=== PATIENT | female | born 1960 | race Caucasian/White ===

== ENCOUNTER 2020-09-05 19:24 | Emergency (ER) | payer OTHER, SELFPAY ==
[2020-09-05 20:19] VITALS: BP 138/95; PULSE 84; RESP 20; TEMP 36.9; O2SAT 95; BMI 41.1
[2020-09-06 00:36] LABS: Basophils Percent Auto 0.3 % (0-2); Eosinophils Absolute Auto 0.2 X10*3/uL (0.0-0.4); Eosinophils Percent Auto 1.2 % (0-4); Hematocrit 38.7 % (37-47); Hemoglobin 12.7 g/dl (12.0-16.0); Imm Gran Abs Auto 0.05 X10*3/uL (0.00-0.03); Imm Gran Pct Auto 0.4 % (0.0-0.4); Lymphocytes Absolute Auto 2.8 X10*3/uL (1.2-4.9); Lymphocytes Percent Auto 20.4 % (20-40); MANUAL DIFF FLAG NO; Mean Corpuscular HGB Conc 32.8 g/dl (31.0-35.0); Mean Corpuscular Hemoglobin 28.5 pg (27.0-33.0); Mean Corpuscular Volume 86.8 fL (80-98); Mean Platelet Volume 10.1 fL (9.4-12.3); Monocytes Percent Auto 7.2 % (2-11); Neutrophils Absolute Auto 9.6 X10*3/uL (2.0-8.3); Neutrophils Percent Auto 70.5 % (45-73); Red Blood Count 4.46 X10*6/uL (4.20-5.50); Red Cell Distribution Width 13.9 % (11.0-16.0); White Blood Count 13.7 X10*3/uL (4.8-10.8)
[2020-09-06 00:39] LABS: Platelet Count 94 X10*3/uL (160-400)
[2020-09-06 01:02] LABS: Alanine Aminotransferase 30 U/L (0-31); Albumin Level 3.7 g/dL (3.5-5.0); Alkaline Phosphatase 115 U/L (39-117); Anion Gap 15 (12-20); Aspartate Amino Transferase 20 U/L (5-31); Bilirubin Total 0.5 mg/dL (0.0-1.0); Blood Urea Nitrogen 33 mg/dL (9-16); Calcium 8.9 mg/dL (8.4-10.2); Carbon Dioxide 22 mmol/L (22-29); Chloride 104 mmol/L (96-108); Creatinine Clr Calc Pharmacy 38.7; Estimated Glomerular Filt Rate 30; Glucose Random 106 mg/dL (60-115); Lipase 10 U/L (8-78); Potassium 4.6 mmol/l (3.3-5.1); Sodium 136 mmol/L (135-145); Total Protein 7.3 g/dL (6.5-8.0)
--- NOTE | 2020-09-06 04:05 | PC.NURSE ---
pt tried to provide a urine sample, unable.
[2020-09-06 04:10] VITALS: BP 102/46; PULSE 73; RESP 16; TEMP 36.2; O2SAT 97
--- NOTE | 2020-09-06 05:15 | ED_ITS ---
HPI - General Adult General Chief complaint: General Medical Stated complaint: ABD PAIN Time Seen by Provider: 09/06/20 04:21 Source: patient Mode of arrival: ambulatory Limitations: no limitations History of Present Illness HPI narrative: this is a 60-year-old female with multiple comorbidities who presents with onset of abdominal discomfort after eating on Saturday evening. She states she has only been able to eat a little bit and has primarily been nauseous but denies any vomiting, fevers but has had chills. She denies any significant surgical history other than cholecystectomy and denies any urinary pain /burning / frequency. She states that overall she has just felt worse since the onset Saturday evening. Related Data Previous Rx's Medication Instructions Recorded ciprofloxacin HCl 500 mg PO Q12H 10 Days #20 tab 09/06/20 metronidazole [Flagyl] 500 mg PO Q8H 10 Days #30 tab 09/06/20 ondansetron HCl [Zofran] 4 mg PO Q6H PRN #7 tab 09/06/20 Allergies Allergy/AdvReac Type Severity Reaction Status Date / Time bacitracin Allergy Unknown Unknown Verified 09/06/20 04:17 esomeprazole [From NEXIUM] Allergy Unknown UNKNOWN Verified 09/06/20 04:17 NSAIDS (Non-Steroidal Allergy Unknown UNKNOWN Verified 09/06/20 04:17 Anti-Inflamma [NSAIDS (NON-STEROIDAL ANTI-INFLAMMA] omeprazole [From PRILOSEC] Allergy Unknown STOMACH Verified 09/06/20 04:17 UPSET ANY ANTI-INFLAMMATORY MEDS Allergy Unknown UNKNOWN Uncoded 08/18/20 18:58 antacids Allergy Unknown Unknown Uncoded 09/06/20 04:17 antiinflammatories Allergy Unknown Unknown Uncoded 09/06/20 04:17 Bacitracin Allergy Unknown Unknown Uncoded 09/06/20 04:17 Review of Systems Review of Systems: Pertinent positives and negatives as stated in HPI 10 point review systems is otherwise negative. [facility] Past Medical History Source: nursing notes reviewed Medical History Asthma Diabetes mellitus, type 2 Hypertension Renal insufficiency Social History Social History Alcohol intake: never Smoking Status: Never smoker Use of substances other than those prescribed or required for medical reasons: No Advance Directives: No Advance Directives Information Provided: No Physical Exam Vital Signs and I&O and Narrative: Vital Signs and I&O: Vital Signs Temp 97.2 F 09/06/20 04:10 Pulse 76 09/06/20 06:48 Resp 18 09/06/20 05:27 BP 103/51 L 09/06/20 06:48 Pulse Ox 98 09/06/20 05:27 Intake & Output 09/05/20 09/06/20 09/06/20 18:59 06:59 18:59 Intake Total 50 / 50 Balance 50 / 50 Weight 102.058 kg Intake: Intake, IV Amoun t 50 / 50 cefTRIAXone so dium 1 gm In 0.9 50 / 50 % Sodium Chlor reyes 50 ml @ 100 mls/hr IV ONCE ONE Rx#: [id number] Body Mass Index 41.1 VITAL SIGNS: Reviewed. GENERAL: Well developed, well nourished, in no acute distress. HEAD: Normocephalic/atraumatic, Posterior oropharynx was without edema, erythema or exudate. EYES: PERRLA, EOMI intact without pain, no nystagmus/pallor/icterus noted EARS: Ext canals without abnormality, TMs non-bulging and non-erythematous NOSE: Nares patent bilateral OROPHARYNX: no oral lesions noted, posterior pharynx clear and non-erythematous without noted tonsillar enlargement/erythema/exudates NECK: Supple, no adenopathy LUNGS: Normal breath sounds. No adventitious sounds or accessory muscle use. SpO2<97> CARDIOVASCULAR: Regular rate and rhythm without noted murmurs, no JVD or lower extremity edema. ABDOMEN: obese,Soft, diffuse tenderness primarily in the lower abdomen, non- distended with bowel sounds. No rigidity. No guarding. No palpable masses or hernias noted MUSCULOSKELETAL: No tenderness, deformities, or effusions noted on gross insp ection. EXTREMITIES: No cyanosis, clubbing or edema. SKIN: Inspection of the skin reveals no rashes, ulcerations, jaundice, pallor, or petechiae. NEUROLOGIC: Alert and oriented x 4. Strength and sensation to light touch were grossly intact x 4. Course Course Course Narrative: This is a 60-year-old female with history and clinical presentation most suggestive of possible diverticulitis, renal colic, UTI. Patient does not currently meet any SIRS criteria. on review of all lab work and imaging patient has a noted leukocytosis with evidence on CT scan of mild colitis and urinalysis is positive for UTI. Patient will be treated with initial IV antibiotics and then discharged with a home prescription. Medical Decision Making Lab Data Result diagrams: 09/06/20 00:30 09/06/20 00:30 Labs: Lab Results 09/06/20 09/06/20 09/06/20 Range/Units 00:30 00:30 03:59 WBC 13.7 H (4.8-10.8) X10*3/uL RBC 4.46 (4.20-5.50) X10*6/uL Hgb 12.7 (12.0-16.0) g/dl Hct 38.7 (37-47) % MCV 86.8 (80-98) fL MCH 28.5 (27.0-33.0) pg MCHC 32.8 (31.0-35.0) g/dl RDW 13.9 (11.0-16.0) % Plt Count 94 L (160-400) X10*3/uL MPV 10.1 (9.4-12.3) fL Immature Gran % (Auto) 0.4 (0.0-0.4) % Neut % (Auto) 70.5 (45-73) % Lymph % (Auto) 20.4 (20-40) % [place] % (Auto) 7.2 (2-11) % Eos % (Auto) 1.2 (0-4) % Baso % (Auto) 0.3 (0-2) % Neut # (Auto) 9.6 H (2.0-8.3) X10*3/uL Lymph # (Auto) 2.8 (1.2-4.9) X10*3/uL [place] # (Auto) 1.0 (0.1-1.2) X10*3/uL Eos # (Auto) 0.2 (0.0-0.4) X10*3/uL Baso # (Auto) 0.0 (0.0-0.2) X10*3/uL Abs Immat Gran (auto) 0.05 H (0.00-0.03) X10*3/uL Absolute Nucleated RBC 0.000 (0.0-0.012) X10*3/uL Nucleated RBC % (auto) 0.0 (0.0-0.2) /100WBC Hold Blue Top SEE NOTE Sodium 136 (135-145) mmol/L Potassium 4.6 (3.3-5.1) mmol/l Chloride 104 (96-108) mmol/L Carbon Dioxide 22 (22-29) mmol/L Anion Gap 15 (12-20) BUN 33 H (9-16) mg/dL Creatinine 1.73 H (0.5-1.4) mg/dL Estim Creat Clear Calc 38.7 Estimated GFR 30 Random Glucose 106 (60-115) mg/dL Calcium 8.9 (8.4-10.2) mg/dL Total Bilirubin 0.5 (0.0-1.0) mg/dL AST 20 (5-31) U/L ALT 30 (0-31) U/L Alkaline Phosphatase 115 (39-117) U/L Total Protein 7.3 (6.5-8.0) g/dL Albumin 3.7 (3.5-5.0) g/dL Lipase 10 (8-78) U/L Urine Color Urine Appearance Urine pH (5.0-8.0) Ur Specific [place] (1.005-1.025) Urine Protein (NEG-TRACE) MG/DL Urine Glucose (UA) (NEG) MG/DL Urine Ketones (NEG) MG/DL Urine Blood (NEG) Urine Nitrite (NEG) Ur Leukocyte Esterase (NEG) Urine RBC (0) /HPF Urine WBC (0-4) /HPF Ur Squamous Epith Cells /LPF Urine Bacteria /LPF Urine Test (NEGATIVE) 09/06/20 Range/Units 06:46 WBC (4.8-10.8) X10*3/uL RBC (4.20-5.50) X10*6/uL Hgb (12.0-16.0) g/dl Hct (37-47) % MCV (80-98) fL MCH (27.0-33.0) pg MCHC (31.0-35.0) g/dl RDW (11.0-16.0) % Plt Count (160-400) X10*3/uL MPV (9.4-12.3) fL Immature Gran % (Auto) (0.0-0.4) % Neut % (Auto) (45-73) % Lymph % (Auto) (20-40) % [place] % (Auto) (2-11) % Eos % (Auto) (0-4) % Baso % (Auto) (0-2) % Neut # (Auto) (2.0-8.3) X10*3/uL Lymph # (Auto) (1.2-4.9) X10*3/uL [place] # (Auto) (0.1-1.2) X10*3/uL Eos # (Auto) (0.0-0.4) X10*3/uL Baso # (Auto) (0.0-0.2) X10*3/uL Abs Immat Gran (auto) (0.00-0.03) X10*3/uL Absolute Nucleated RBC (0.0-0.012) X10*3/uL Nucleated RBC % (auto) (0.0-0.2) /100WBC Hold Blue Top Sodium (135-145) mmol/L Potassium (3.3-5.1) mmol/l Chloride (96-108) mmol/L Carbon Dioxide (22-29) mmol/L Anion Gap (12-20) BUN (9-16) mg/dL Creatinine (0.5-1.4) mg/dL Estim Creat Clear Calc Estimated GFR Random Glucose (60-115) mg/dL Calcium (8.4-10.2) mg/dL Total Bilirubin (0.0-1.0) mg/dL AST (5-31) U/L ALT (0-31) U/L Alkaline Phosphatase (39-117) U/L Total Protein (6.5-8.0) g/dL Albumin (3.5-5.0) g/dL Lipase (8-78) U/L Urine Color DARK YELLOW Urine Appearance HAZY Urine pH 6.0 (5.0-8.0) Ur Specific [place] 1.025 (1.005-1.025) Urine Protein TRACE (NEG-TRACE) MG/DL Urine Glucose (UA) NEG (NEG) MG/DL Urine Ketones NEG (NEG) MG/DL Urine Blood NEG (NEG) Urine Nitrite POS H (NEG) Ur Leukocyte Esterase 1+ H (NEG) Urine RBC 0 (0) /HPF Urine WBC 15-29 H (0-4) /HPF Ur Squamous Epith Cells TRACE /LPF Urine Bacteria 3+ /LPF Urine Test NEGATIVE (NEGATIVE) Discharge Plan Discharge Clinical Impression: Colitis UTI (urinary tract infection) Qualifiers: Urinary tract infection type: acute cystitis Hematuria presence: without hematuria Qualified Code(s): N30.00 - Acute cystitis without hematuria Patient Disposition: Home, Self-Care Instructions: Urinary Tract Infection in Women (ED), Colitis (ED) Additional Instructions: 1. Resume all home medications as prescribed. 2. avoid all spicy/ fatty /citrus foods, caffeinated / carbonated beverages 3. increase fluid intake, especially water The patient and/or family acknowledge understanding of results (as applicable), diagnosis, treatment plan, need for follow up, and symptoms that should prompt a return to the emergency room. Prescriptions: New ciprofloxacin HCl 500 mg tablet 500 mg PO Q12H 10 Days Qty: 20 RF: 0 metronidazole [Flagyl] 500 mg tablet 500 mg PO Q8H 10 Days Qty: 30 RF: 0 ondansetron HCl [Zofran] 4 mg tablet 4 mg PO Q6H PRN (Reason: nausea and vomiting) Qty: 7 RF: 0 Referrals: Po,Fabienne Alvarez MD [Primary Care Provider] -
[2020-09-06 05:27] VITALS: BP 99/57; PULSE 72; RESP 18; O2SAT 98
--- NOTE | 2020-09-06 05:36 | CT_ITS ---
EXAMINATION: CT ABDOMEN AND PELVIS WITHOUT CONTRAST CLINICAL INFORMATION: Abdominal pain COMPARISON: Report from 05/28/2020. Images not available. TECHNIQUE: Multidetector volumetric imaging was performed from the superior aspect of the liver through the pubic symphysis. Sagittal and coronal reformatted images were obtained on the technologist's workstation. This CT examination was performed using dose optimization techniques as appropriate, variously including the following: *Automated exposure control *Adjustment of mA and/or kV according to patient size (this includes techniques or standardized protocols for targeted exams where dose is matched to indication/reason for exam; i.e. extremities or head) *Use of iterative reconstruction technique DLP: 838 mGy-cm FINDINGS: LUNG BASES: The visualized lung bases are unremarkable. LIVER, GALLBLADDER, AND BILIARY TREE: Nodular Contour of the liver consistent with cirrhosis. Normal size. Trace ascites. No focal liver lesion. No ductal dilatation. Cholecystectomy. PANCREAS: Mild atrophy of the pancreatic parenchyma with no focal lesion. SPLEEN: The spleen is enlarged measuring 18 cm in AP dimension. No focal splenic lesion. ADRENAL GLANDS: Unremarkable. KIDNEYS AND URETERS: The kidneys are normal in size, shape, and attenuation. No hydronephrosis, hydroureter, or calculi seen. No perinephric stranding. Left lower pole 1.4 cm cyst. BLADDER: Unremarkable. GASTROINTESTINAL TRACT: The stomach is decompressed with no gross abnormality. Normal caliber small bowel. There is no obstruction. Normal appendix. There is wall thickening involving the transverse colon and descending colon. There is adjacent inflammatory change. No free air. No fluid collection. ABDOMINAL WALL: Small fat-containing right paraumbilical hernia. LYMPH NODES: Normal. VASCULAR: Normal caliber aorta with mild atherosclerotic calcification. PELVIC VISCERA: The uterus is not seen. No adnexal mass. OSSEOUS STRUCTURES: No acute or suspicious osseous abnormality. Multilevel degenerative changes throughout the spine. Multilevel vacuum disc phenomenon. Degenerative changes of the left hip. IMPRESSION: 1. Wall thickening and inflammation of the left hemicolon, suggestive of nonspecific colitis. 2. Cirrhotic liver. Trace ascites adjacent to the liver.
--- NOTE | 2020-09-06 06:47 | PC.NURSE ---
MD ORDERED A STRAIGHT CATH FOR URINE SAMPLE AND TO DRAIN BLADDER. PT WAS NOT ABLE TO VOID.
[2020-09-06 06:48] VITALS: BP 103/51; PULSE 76
[2020-09-06 06:52] LABS: Glucose Urine UA NEG (NEG); Leukocyte Esterase Urine 1+ (NEG); Nitrite Urine POS (NEG); Specific Gravity - Urine 1.025 (1.005-1.025); Urine Blood NEG (NEG); Urine Ketones NEG (NEG); Urine Protein TRACE MG/DL (NEG-TRACE)
[2020-09-06 06:53] LABS: Appearance Urine HAZY; Color Urine DARK YELLOW
--- NOTE | 2020-09-06 06:53 | PC.NURSE ---
150 cc's urine from straight cath. initially ordered lactic and cultures, but decided to cancel them.
[2020-09-06 07:00] LABS: Bacteria Urine 3+ /LPF; RBC Urine 0 /HPF (0); Squamous Epithelial Cell Urine TRACE /LPF
[2020-09-06 07:01] LABS: UPreg QC Valid YES; Urine Pregnancy NEGATIVE (NEGATIVE)
[2020-09-06] MEDS: 0.9 % Sodium Chloride 1,500 ML 999 ML IV (07:03)
[2020-09-06] MEDS: cefTRIAXone sodium 1 GM in 0.9 % Sodium Chloride 50 ML IV (07:18)
--- NOTE | 2020-09-06 07:23 | PC.NURSE ---
REPORT FROM MONIKA. PT HERE WITH ABD PAIN. AWAITINF DISPO. IV ABX UP PER ORDERS
[2020-09-06] MEDS: metroNIDAZOLE/NS 500 MG/100 ML PIGGYBACK 100 MG IV (07:51)
[2020-09-06] MEDS: HYDROmorphone HCl 0.5 MG/0.5 ML SYRINGE IVPUSH (07:51)
--- NOTE | 2020-09-06 07:54 | PC.NURSE ---
MEDICATED FOR 10/10 ABD PAIN
[2020-09-06 08:34] VITALS: BP 107/55; PULSE 73; O2SAT 96
[2020-09-06 11:04] VITALS: BP 110/78; PULSE 71
--- NOTE | 2020-09-06 11:05 | PC.NURSE ---
SOM FOR [place]. NEEDS AMB HOME. WILL BOOK. LUNCH ORDERED. VITALS UPDATED
--- NOTE | 2020-09-06 11:59 | PC.NURSE ---
AMB BOOKED FOR [facility] - NEXT AVAILABLE
== END 2020-09-06 12:57 | disposition home or self-care (01) ==
PROVIDERS: Emergency Provider Student in an Organized Health Care Education/Training Program; PCP Internal Medicine
DX: K52.9 Noninfective gastroenteritis and colitis, unspecified (principal); N30.00 Acute cystitis without hematuria; I10 Essential (primary) hypertension; E11.9 Type 2 diabetes mellitus without complications; Z79.899 Other long term (current) drug therapy
CPT/HCPCS: 36415; 74176; 80053; 81001; 81025; 83690; 85025; 87086; 87088; 87186; 96365; 96375; 99284; J1170

== ENCOUNTER 2020-09-20 14:55 | Emergency (ER) | payer OTHER, SELFPAY ==
[2020-09-20 15:21] VITALS: BP 157/79; BP 162/78; PULSE 77; PULSE 78; RESP 18; TEMP 37.4; O2SAT 96; O2SAT 97; BMI 43.8
--- NOTE | 2020-09-20 15:44 | ED_ITS ---
HPI - Abdominal Pain General Chief Complaint: Abdominal Pain Stated Complaint: ABD PAIN Time Seen by Provider: 09/20/20 15:42 Mode of arrival: EMS Limitations: no limitations History of Present Illness HPI narrative: Patient presents to the ED for lower quadrant abdominal pain and blood in stool and dark color stool. Patient was recently diagnosed with colitis and just finished her antibiotic yesterday. Patient states pain has worsened. Patient states no chest pain, shorntess of breath, fever, chills, flank pain, dysiria, hematuria, or weakness MD elicited complaint: abdominal pain Onset (ago): day(s) (11 days) Related Data Home Medications Medication Instructions Recorded Confirmed alcohol swabs 0 pad TOPICAL 09/15/20 09/15/20 blood sugar diagnostic #10 ea 09/15/20 09/15/20 shkcxxvdjg-lahmrksxmbcqz-bhzlxxmb 0 tab PO 09/15/20 09/15/20 50 mg-325 mg-40 mg tablet famotidine 20 mg tablet 20 mg PO BID 09/15/20 09/15/20 fluticasone 250 mcg-salmeterol 50 ea INHALATION 09/15/20 09/15/20 mcg/dose blistr powdr for inhalation insulin aspart U-100 100 unit/mL 5 unit SUBCUT .COMPLEX 09/15/20 09/15/20 (3 mL) subcutaneous pen insulin glargine 100 unit/mL (3 40 unit SUBCUT .COMPLEX ml 09/15/20 09/15/20 mL) subcutaneous pen ipratropium 20 mcg-albuterol 100 1 puff INHALATION Q6H 09/15/20 09/15/20 mcg/actuation mist for inhalation lancets 30 gauge #100 ea 09/15/20 09/15/20 lisinopril 20 mg tablet 20 mg PO DAILY 09/15/20 09/15/20 loratadine 10 mg tablet 10 mg PO DAILY 09/15/20 09/15/20 lorazepam 1 mg tablet 1 mg PO BID PRN 09/15/20 09/15/20 metoprolol succinate 25 mg 25 mg PO DAILY 09/15/20 09/15/20 tablet,extended release 24 hr nystatin 100,000 unit/gram topical TOPICAL 09/15/20 09/15/20 powder ondansetron 4 mg disintegrating 4 mg PO Q6H PRN 09/15/20 09/15/20 tablet pen needle, diabetic 32 gauge x #50 ea 09/15/20 09/15/2012/05 pen needle, diabetic 33 gauge x #100 ea 09/15/20 09/15/2012/05 tramadol 50 mg tablet 50 mg PO BID PRN 09/15/20 09/15/20 dicyclomine 20 mg tablet 20 mg PO TID 09/19/20 Previous Rx's Medication Instructions Recorded ciprofloxacin HCl 500 mg PO Q12H 10 Days #20 tab 09/06/20 hydrochlorothiazide 12.5 mg tablet 12.5 mg PO DAILY 90 Days #90 tab 09/06/20 metronidazole [Flagyl] 500 mg PO Q8H 10 Days #30 tab 09/06/20 gabapentin 600 mg tablet 600 mg PO TID 30 Days #90 tab 09/15/20 guaifenesin 600 mg tablet, 600 mg PO BID #20 tab 09/15/20 extended release 12 hr tizanidine 4 mg tablet 4 mg PO BEDTIME PRN #30 tab 09/15/20 dicyclomine 20 mg tablet 20 mg PO QID #120 tab 09/19/20 oxycodone 5 mg PO TID PRN #9 cap 09/20/20 Allergies Allergy/AdvReac Type Severity Reaction Status Date / Time bacitracin Allergy Unknown Unknown Verified 09/15/20 08:40 esomeprazole [From NEXIUM] Allergy Unknown UNKNOWN Verified 09/15/20 08:40 NSAIDS (Non-Steroidal Allergy Unknown UNKNOWN Verified 09/15/20 08:40 Anti-Inflamma [NSAIDS (NON-STEROIDAL ANTI-INFLAMMA] omeprazole [From PRILOSEC] Allergy Unknown STOMACH Verified 09/15/20 08:40 UPSET ANY ANTI-INFLAMMATORY MEDS Allergy Unknown UNKNOWN Uncoded 09/15/20 08:40 antacids Allergy Unknown Unknown Uncoded 09/15/20 08:40 antiinflammatories Allergy Unknown Unknown Uncoded 09/15/20 08:40 Bacitracin Allergy Unknown Unknown Uncoded 09/15/20 08:40 Review of Systems Review of Systems Patient denies any dysuria, hematuria, flank pain, fever, chills, chest pain, shortness of breath, headache, dizziness, rash, neck stiffness, eye pain, diarrhea, or any other concerning symptoms. Yes all other systems are reviewed and are negative Physical Exam Vital Signs: Vital Signs: Vital Signs Temp Pulse Resp BP Pulse Ox 09/20/20 20:20 98.7 F 76 18 177/93 H 09/20/20 19:14 18 09/20/20 17:55 98.9 F 81 18 142/74 H 96 09/20/20 15:21 99.3 F 77 18 157/79 H 96 Body Mass Index 43.8 Const: General: cooperative, healthy appearing, comfortable, no acute distress, well developed, alert and awake Orientation/consciousness: oriented to person, oriented to place, oriented to time and patient oriented x3 HENMT: Head: Yes normal to inspection Eyes: General: appearance normal, both eyes and all related structures Neck: Neck: Yes normal visual inspection Chest: Chest palpation & inspection: normal inspection of the chest and normal palpation of entire chest wall Resp: Effort & Inspection: normal respiratory effort, able to speak in complete sentences, normal respiratory pattern and no audible wheezes Auscultation: clear to auscultation bilaterally Percussion: percussion normal Cardio: Jugular venous distension: no JVD Heart sounds: S1 normal heart sound present and S2 normal heart sound present GI: Other: rectal exam negative for any black stool. Stool is brown and negative for silvio blood Inspection: Yes normal to inspection and No abdominal wall ecchymosis Palpation (GI): Soft to palpation, not firm, Tenderness to palpation present (GI) in the LLQ, no guarding and not rigid : General: No CVA tenderness and Yes no CVA tenderness Back/Spine/Pelvis: Back: no CVA tenderness, No CVA tenderness and No back tenderness Skin: General skin exam: no rashes or lesions noted Neuro: General: oriented to person, oriented to place, oriented to time, patient oriented x3, gait normal and CN's II-XI intact bilaterally Cranial nerves: Yes CN's II-XII intact bilaterally Extrem: General: Yes normal to inspection and Yes full ROM Psych: Appearance: grossly normal, well kempt and not disheveled Course Course Course Narrative: Rectal exam negative for any blood. Will order labs and possibly repeat abdominal CT scan. Morphine ordered for pain. Reevaluation(s) Reevaluation #1: patient passed p.o. challenge. Patient states still having slight pain. Patient abdominal CT scan does not show any medical/surgical emergency etiology. Urinalysis negative for UTI. Patient will be discharged with pain medication. Patient will be referred to surveillance camera technician for cirrhosis. CT scan does not indicate ascites. SBP not suspected. Patient does not have any bowel obstruction. Time: 20:32 Reevaluation #2: patient will be discharged with narcotics and copy of labs and imaging. Patient informed to call her PCP tomorrow. Time: 20:35 MDM - Abdominal Pain MDM Narrative Medical decision making narrative: abdominal pain Differential Diagnosis Differential diagnosis: Likely abdominal pain Lab Data Result diagrams: 09/20/20 16:47 09/20/20 16:47 Labs: Lab Results 09/20/20 09/20/20 09/20/20 Range/Units 16:14 16:47 16:47 WBC 8.9 (4.8-10.8) X10*3/uL RBC 4.32 (4.20-5.50) X10*6/uL Hgb 12.2 (12.0-16.0) g/dl Hct 36.0 L (37-47) % MCV 83.3 (80-98) fL MCH 28.2 (27.0-33.0) pg MCHC 33.9 (31.0-35.0) g/dl RDW 14.1 (11.0-16.0) % Plt Count 111 L (160-400) X10*3/uL MPV 10.5 (9.4-12.3) fL Immature Gran % (Auto) 0.7 H (0.0-0.4) % Neut % (Auto) 71.6 (45-73) % Lymph % (Auto) 20.2 (20-40) % Larue % (Auto) 5.6 (2-11) % Eos % (Auto) 1.6 (0-4) % Baso % (Auto) 0.3 (0-2) % Lymph # (Auto) 1.8 (1.2-4.9) X10*3/uL Larue # (Auto) 0.5 (0.1-1.2) X10*3/uL Eos # (Auto) 0.1 (0.0-0.4) X10*3/uL Baso # (Auto) 0.0 (0.0-0.2) X10*3/uL Abs Immat Gran (auto) 0.06 H (0.00-0.03) X10*3/uL Absolute Neuts (auto) 6.3 (2.0-8.3) X10*3/uL Absolute Nucleated RBC 0.000 (0.0-0.012) X10*3/uL Nucleated RBC % (auto) 0.0 (0.0-0.2) /100WBC PT 12.4 (10.8-13.0) SEC INR 1.0 (0.9-1.1) APTT 30.2 (24.1-38.0) SEC Sodium (135-145) mmol/L Potassium (3.3-5.1) mmol/l Chloride (96-108) mmol/L Carbon Dioxide (22-29) mmol/L Anion Gap (12-20) BUN (9-16) mg/dL Creatinine (0.5-1.4) mg/dL Estim Creat Clear Calc Estimated GFR Random Glucose (60-115) mg/dL Calcium (8.4-10.2) mg/dL Total Bilirubin (0.0-1.0) mg/dL Direct Bilirubin (0.0-0.5) mg/dL AST (5-31) U/L ALT (0-31) U/L Alkaline Phosphatase (39-117) U/L Total Protein (6.5-8.0) g/dL Albumin (3.5-5.0) g/dL Lipase (8-78) U/L Urine Color Urine Appearance Urine pH (5.0-8.0) Ur Specific Driscoll (1.005-1.025) Urine Protein (NEG-TRACE) MG/DL Urine Glucose (UA) (NEG) MG/DL Urine Ketones (NEG) MG/DL Urine Blood (NEG) Urine Nitrite (NEG) Ur Leukocyte Esterase (NEG) Urine RBC (0) /HPF Urine WBC (0-4) /HPF Ur Squamous Epith Cells /LPF Urine Bacteria /LPF Urine Yeast /HPF Stool Occult Blood NEG (NEG) 09/20/20 09/20/20 09/20/20 Range/Units 16:47 16:47 17:15 WBC (4.8-10.8) X10*3/uL RBC (4.20-5.50) X10*6/uL Hgb (12.0-16.0) g/dl Hct (37-47) % MCV (80-98) fL MCH (27.0-33.0) pg MCHC (31.0-35.0) g/dl RDW (11.0-16.0) % Plt Count (160-400) X10*3/uL MPV (9.4-12.3) fL Immature Gran % (Auto) (0.0-0.4) % Neut % (Auto) (45-73) % Lymph % (Auto) (20-40) % Larue % (Auto) (2-11) % Eos % (Auto) (0-4) % Baso % (Auto) (0-2) % Lymph # (Auto) (1.2-4.9) X10*3/uL Larue # (Auto) (0.1-1.2) X10*3/uL Eos # (Auto) (0.0-0.4) X10*3/uL Baso # (Auto) (0.0-0.2) X10*3/uL Abs Immat Gran (auto) (0.00-0.03) X10*3/uL Absolute Neuts (auto) (2.0-8.3) X10*3/uL Absolute Nucleated RBC (0.0-0.012) X10*3/uL Nucleated RBC % (auto) (0.0-0.2) /100WBC PT (10.8-13.0) SEC INR (0.9-1.1) APTT (24.1-38.0) SEC Sodium 136 (135-145) mmol/L Potassium 4.4 (3.3-5.1) mmol/l Chloride 104 (96-108) mmol/L Carbon Dioxide 22 (22-29) mmol/L Anion Gap 14 (12-20) BUN 19 H (9-16) mg/dL Creatinine 1.18 (0.5-1.4) mg/dL Estim Creat Clear Calc 58.8 Estimated GFR 47 Random Glucose 167 H D (60-115) mg/dL Calcium 9.3 (8.4-10.2) mg/dL Total Bilirubin 0.2 0.2 (0.0-1.0) mg/dL Direct Bilirubin < 0.2 (0.0-0.5) mg/dL AST 30 D 34 H (5-31) U/L ALT 28 28 (0-31) U/L Alkaline Phosphatase 132 H 131 H (39-117) U/L Total Protein 7.4 7.5 (6.5-8.0) g/dL Albumin 3.7 3.6 (3.5-5.0) g/dL Lipase 41 (8-78) U/L Urine Color YELLOW Urine Appearance CLEAR Urine pH 6.0 (5.0-8.0) Ur Specific Driscoll 1.010 (1.005-1.025) Urine Protein NEG (NEG-TRACE) MG/DL Urine Glucose (UA) 250 H (NEG) MG/DL Urine Ketones NEG (NEG) MG/DL Urine Blood NEG (NEG) Urine Nitrite NEG (NEG) Ur Leukocyte Esterase TRACE H (NEG) Urine RBC 0 (0) /HPF Urine WBC 1-4 (0-4) /HPF Ur Squamous Epith Cells 4+ /LPF Urine Bacteria NONE /LPF Urine Yeast 1+ /HPF Stool Occult Blood (NEG) Discharge Plan Discharge Clinical Impression: Abdominal pain Patient Disposition: Home, Self-Care Instructions: Abdominal Pain (ED) Prescriptions: New oxycodone 5 mg capsule 5 mg PO TID PRN (Reason: pain) Qty: 9 RF: 0 No Action hydrochlorothiazide 12.5 mg tablet 12.5 mg PO DAILY 90 Days Qty: 90 RF: 0 tizanidine 4 mg tablet 4 mg PO BEDTIME PRN (Reason: muscle spasticity) Qty: 30 RF: 0 dicyclomine 20 mg tablet 20 mg PO TID RF: 0 dicyclomine 20 mg tablet 20 mg PO QID Qty: 120 RF: 0 ciprofloxacin HCl 500 mg tablet 500 mg PO Q12H 10 Days Qty: 20 RF: 0 metronidazole [Flagyl] 500 mg tablet 500 mg PO Q8H 10 Days Qty: 30 RF: 0 ondansetron 4 mg tablet,disintegrating 4 mg PO Q6H PRNRF: 0 (DME) Comfort EZ Pen [place] 33 gauge x 1/4 needle See Rx Instructions ea .ROUTE .MEDSUPPLY Qty: 100 RF: 0 loratadine 10 mg tablet 10 mg PO DAILY RF: 0 nystatin 100,000 unit/gram powder topical RF: 0 lisinopril 20 mg tablet 20 mg PO DAILY RF: 0 lorazepam 1 mg tablet 1 mg PO BID PRNRF: 0 wkmyxayzvr-qmmqjovrylbev-vyyw 50-325-40 mg tablet 0 tab PO RF: 0 fluticasone propion-salmeterol 250-50 mcg/dose blister with device inhalation RF: 0 (DME) FreeStyle Lite Strips Strip See Rx Instructions ea Not Applicable TID Qty: 10 RF: 0 metoprolol succinate 25 mg tablet extended release 24 hr 25 mg PO DAILY RF: 0 (DME) pen needle, diabetic 32 gauge x 1/4 needle See Rx Instructions ea .ROUTE .MEDSUPPLY Qty: 50 RF: 0 Combivent Respimat 20-100 mcg/actuation mist 1 puff inhalation Q6H RF: 0 tramadol 50 mg tablet 50 mg PO BID PRNRF: 0 (DME) lancets 30 gauge misc See Rx Instructions ea .ROUTE TID Qty: 100 RF: 0 famotidine 20 mg tablet 20 mg PO BID RF: 0 alcohol swabs Pads, Medicated 0 pad topical RF: 0 insulin glargine 100 unit/mL (3 mL) insulin pen 40 unit subcut .COMPLEX RF: 0 insulin aspart U-100 100 unit/mL (3 mL) insulin pen 5 unit subcut .COMPLEX RF: 0 gabapentin 600 mg tablet 600 mg PO TID 30 Days Qty: 90 RF: 0 guaifenesin [Mucinex] 600 mg tablet extended release 12hr 600 mg PO BID Qty: 20 RF: 0 Referrals: Cristina Sweeney MD [Physician] - 2 days ( management of cirrhosis.) Po,Fabienne Alvarez MD [Primary Care Provider] - 2 days ( abdominal pain. Need referral to Gastroenterology for chronic cirrhosis. CT scan negative for ascites. CT scan negative for colitis. CT scan negative for small bowel obstruction.) Interventions: ED Discharge Assessment Last Done: 09/20/20 21:57 Discharge Date/Time: 09/20/20 22:00 Print Language: Thai [facility] Past Medical History Medical History (Updated 09/20/20 @ 20:42 by RICARDO Alcantara) Asthma Chronic hepatitis C CKD (chronic kidney disease) stage 3, GFR 30-59 ml/min COPD (chronic obstructive pulmonary disease) Degenerative disc disease, lumbar Diabetes mellitus, type 2 Diabetic neuropathy GERD (gastroesophageal reflux disease) Hypertension Knee pain, bilateral Liver cirrhosis Myocardial infarct, old Obesity PTSD (post-traumatic stress disorder) Renal insufficiency Tobacco abuse Type 2 diabetes mellitus with hyperglycemia Surgical History History of arthroplasty of both knees History of cholecystectomy History of elbow surgery History of fracture of leg History of surgery on arm History of total hysterectomy S/P insertion of spinal cord stimulator Family History Family History (Updated 09/14/20 @ 14:21 by Erica Bejarano Magnus) Father Medical history unknown Mother Medical history unknown Social History Social History Alcohol intake: never Smoking Status: Current every day smoker Use of substances other than those prescribed or required for medical reasons: No Advance Directives: No Advance Directives Information Provided: No
[2020-09-20 16:38] LABS: OBS Int Ctl Valid YES; OBS1 NEG (NEG)
[2020-09-20 16:52] LABS: PLT CLUMP 1; SCAN SMEAR FLAG 1
[2020-09-20 16:58] LABS: Hemoglobin 12.2 g/dl (12.0-16.0); Imm Gran Abs Auto 0.06 X10*3/uL (0.00-0.03); Imm Gran Pct Auto 0.7 % (0.0-0.4); Monocytes Absolute Auto 0.5 X10*3/uL (0.1-1.2); Monocytes Percent Auto 5.6 % (2-11); White Blood Count 8.9 X10*3/uL (4.8-10.8)
[2020-09-20 16:59] LABS: Basophils Percent Auto 0.3 % (0-2); Eosinophils Absolute Auto 0.1 X10*3/uL (0.0-0.4); Eosinophils Percent Auto 1.6 % (0-4); Lymphocytes Absolute Auto 1.8 X10*3/uL (1.2-4.9); Lymphocytes Percent Auto 20.2 % (20-40); Mean Corpuscular HGB Conc 33.9 g/dl (31.0-35.0); Mean Corpuscular Hemoglobin 28.2 pg (27.0-33.0); Mean Corpuscular Volume 83.3 fL (80-98); Mean Platelet Volume 10.5 fL (9.4-12.3); Neutrophils Absolute Auto 6.3 X10*3/uL (2.0-8.3); Neutrophils Percent Auto 71.6 % (45-73); Platelet Count 111 X10*3/uL (160-400); Prothrombin Time 12.4 SEC (10.8-13.0); Red Blood Count 4.32 X10*6/uL (4.20-5.50); Red Cell Distribution Width 14.1 % (11.0-16.0)
[2020-09-20 17:00] LABS: MANUAL DIFF FLAG NO
[2020-09-20 17:02] LABS: Partial Thromboplastin Time 30.2 SEC (24.1-38.0)
[2020-09-20 17:22] LABS: Glucose Urine UA 250 MG/DL (NEG); Leukocyte Esterase Urine TRACE (NEG); Nitrite Urine NEG (NEG); Urine Blood NEG (NEG); Urine Ketones NEG (NEG); Urine Protein NEG (NEG-TRACE)
[2020-09-20] MEDS: Morphine Sulfate 4 MG/ML CARTRIDGE IVPUSH ×2 (17:22→19:14)
[2020-09-20 17:27] LABS: Appearance Urine CLEAR; Color Urine YELLOW
[2020-09-20 17:28] LABS: Alanine Aminotransferase 28 U/L (0-31); Albumin Level 3.6 g/dL (3.5-5.0); Albumin Level 3.7 g/dL (3.5-5.0); Alkaline Phosphatase 131 U/L (39-117); Alkaline Phosphatase 132 U/L (39-117); Anion Gap 14 (12-20); Aspartate Amino Transferase 30 U/L (5-31); Aspartate Amino Transferase 34 U/L (5-31); Bilirubin Direct < 0.2 mg/dL (0.0-0.5); Bilirubin Total 0.2 mg/dL (0.0-1.0); Blood Urea Nitrogen 19 mg/dL (9-16); Calcium 9.3 mg/dL (8.4-10.2); Carbon Dioxide 22 mmol/L (22-29); Chloride 104 mmol/L (96-108); Creatinine Clr Calc Pharmacy 58.8; Estimated Glomerular Filt Rate 47; Glucose Random 167 mg/dL (60-115); Lipase 41 U/L (8-78); Potassium 4.4 mmol/l (3.3-5.1); Sodium 136 mmol/L (135-145); Total Protein 7.4 g/dL (6.5-8.0); Total Protein 7.5 g/dL (6.5-8.0)
--- NOTE | 2020-09-20 17:30 | CT_ITS ---
EXAMINATION: CT ABDOMEN AND PELVIS WITH CONTRAST CLINICAL INFORMATION: 60-year-old diabetic female patient with abdominal pain. Colitis. COMPARISON: CT of the abdomen and pelvis on 09/06/2020. (Cirrhosis of the liver. Splenomegaly. Left sided colitis). Previous CT exams of the abdomen and pelvis on 05/28/2020 and 08/21/2019. TECHNIQUE: Multidetector volumetric images were obtained from the superior aspect of the liver through the pubic symphysis following administration 85 mL of Omnipaque 350 intravenous contrast. Sagittal and coronal reformatted images were obtained on the technologist's workstation. Oral contrast: No This CT examination was performed using dose optimization techniques as appropriate, variously including the following: *Automated exposure control *Adjustment of mA and/or kV according to patient size (this includes techniques or standardized protocols for targeted exams where dose is matched to indication/reason for exam; i.e. extremities or head) *Use of iterative reconstruction technique DLP: 908 mGy-cm FINDINGS: SHIFT STACKER: The patient's gallbladder has been surgically removed. The spleen is enlarged. There is moderate increased burden of formed stool throughout the colon. No obstruction. LUNG BASES: The visualized lung bases are unremarkable. LIVER, GALLBLADDER, AND BILIARY TREE: The liver is normal in size but shows a micronodular contour diagnostic for liver cirrhosis. The intrahepatic biliary ducts are not dilated. The common bile duct measures up to 2 cm in diameter which can be normal in a patient of this age and gender post cholecystectomy. There is a cystic duct remnant. PANCREAS: Moderately atrophic. SPLEEN: Enlarged. The spleen measures 15.5 cm in oblique diameter. ADRENAL GLANDS: Unremarkable. KIDNEYS AND URETERS: The kidneys are normal in size, shape, and attenuation. No hydronephrosis, hydroureter, or calculi seen. No perinephric stranding. The cyst in the left kidney measures 1.5 cm in diameter. BLADDER: Significantly distended. Bladder wall is of uniform thickness. GASTROINTESTINAL TRACT: The small and large bowel are unremarkable. Specifically, there is no indication of colitis or pericolonic inflammation. The appendix is unremarkable. ABDOMINAL WALL: A tiny periumbilical fat-containing hernia arises from the anterior abdominal wall just to the right and slightly inferior to the umbilicus. Mild dependent anasarca. LYMPH NODES: Normal. VASCULAR: Unremarkable. PELVIC VISCERA: Uterus has been removed. No abnormal pelvic masses. OSSEOUS STRUCTURES: Multilevel degenerative disc disease. IMPRESSION: 1. Cirrhosis of liver and splenomegaly. 2. No evidence of colitis. 3. Significantly distended urinary bladder.
[2020-09-20 17:39] LABS: RBC Urine 0 /HPF (0); Squamous Epithelial Cell Urine 4+ /LPF
[2020-09-20] MEDS: iohexoL 350 MG/ML 100 ML INFUS..BTL IV (17:52)
[2020-09-20 17:55] VITALS: BP 142/74; PULSE 81; RESP 18; TEMP 37.2; O2SAT 96
--- NOTE | 2020-09-20 19:04 | PC.NURSE ---
provider notified of patients continued abd pain, no new orders at this time.
[2020-09-20 19:14] VITALS: RESP 18
[2020-09-20 20:20] VITALS: BP 177/93; PULSE 76; RESP 18; TEMP 37.1
--- NOTE | 2020-09-20 20:48 | PC.NURSE ---
patient angry, states this facility sucks, it is no better than [facility], [facility] or [facility], you all treat me like I have the plague, there is something wrong with me, my doctor told me so patient states now you are going to have to give me a ride back home, I am handicapped and need to go in a van or ambulance, patient stated she called the longterm and they have no transportation to bring her home patient is upset with the provider here in the ED as her testing was unfounded, patient received 2 doses of morphine for pain while she was here and still has c/o 9/10 abd pain which she feels we did not treat. provider has written a script for pain medications to discharge with. will notify charge and working on discharging the patient.
--- NOTE | 2020-09-20 21:20 | PC.NURSE ---
sials has been booked, patient awaiting its arrival
== END 2020-09-20 22:00 | disposition home or self-care (01) ==
PROVIDERS: Physician Assistant; Emergency Provider Emergency Medicine Emergency Medical Services; PCP Internal Medicine
DX: R10.30 Lower abdominal pain, unspecified (principal); E11.22 Type 2 diabetes mellitus with diabetic chronic kidney disease; I12.9 Hypertensive chronic kidney disease with stage 1 through stage 4 chronic kidney disease, or unspecified chronic kidney disease; N18.30 Chronic kidney disease, stage 3 unspecified; K21.9 Gastro-esophageal reflux disease without esophagitis; K74.60 Unspecified cirrhosis of liver; I25.2 Old myocardial infarction; F17.210 Nicotine dependence, cigarettes, uncomplicated; Z90.49 Acquired absence of other specified parts of digestive tract; Z90.710 Acquired absence of both cervix and uterus; Z96.82 Presence of neurostimulator
CPT/HCPCS: 36415; 74177; 80053; 80076; 81001; 82248; 82272; 83690; 85025; 85610; 85730; 87086; 96374; 96376; 99284; J2270

== ENCOUNTER 2020-11-26 23:51 | Emergency (ER) | payer OTHER, SELFPAY ==
[2020-11-27 00:01] VITALS: BP 156/84; PULSE 97; RESP 18; TEMP 37; O2SAT 100; BMI 47.2
--- NOTE | 2020-11-27 02:27 | ECG_ITS ---
Test Reason : BASELINE Blood Pressure : / mmHG Vent. Rate : 092 BPM Atrial Rate : 092 BPM P-R Int : 140 ms QRS Dur : 074 ms QT Int : 360 ms P-R-T Axes : 073 010 042 degrees QTc Int : 445 ms Normal sinus rhythm with sinus arrhythmia Possible Anterior infarct (cited on or before 13-JUL-2020) Abnormal ECG When compared with ECG of 13-JUL-2020 14:30, No significant change was found Referred By: Erinn Mcclellan Electronically Signed By:NEEL HERNANDEZ MD
--- NOTE | 2020-11-27 02:30 | ED.GENADULT ---
HPI - General Adult General Chief complaint: General Medical Stated complaint: rib pain Time Seen by Provider: 11/27/20 02:17 Source: patient History of Present Illness HPI narrative: This is a 60-year-old female who presents with 2-3 days of worsening left-sided chest wall discomfort that she states is not associated with any falls but states that the pain increases with deep inspiration or movement. Otherwise, she denies any associated fevers, chills, headaches, dizziness, GI symptoms, or symptoms. She describes that she was recently discharged from [facility] where she is concerned that there were limited interventions provided to her. In addition, she is struggling with her home health aides. Related Data Home Medications Medication Instructions Recorded Confirmed alcohol swabs 0 pad TOPICAL 09/15/20 09/15/20 blood sugar diagnostic #10 ea 09/15/20 09/15/20 fluticasone 250 mcg-salmeterol 50 ea INHALATION 09/15/20 09/15/20 mcg/dose blistr powdr for inhalation insulin aspart U-100 100 unit/mL 5 unit SUBCUT .COMPLEX 09/15/20 09/15/20 (3 mL) subcutaneous pen insulin glargine 100 unit/mL (3 40 unit SUBCUT .COMPLEX ml 09/15/20 09/15/20 mL) subcutaneous pen ipratropium 20 mcg-albuterol 100 1 puff INHALATION Q6H 09/15/20 09/15/20 mcg/actuation mist for inhalation lancets 30 gauge #100 ea 09/15/20 09/15/20 lisinopril 20 mg tablet 20 mg PO DAILY 09/15/20 09/15/20 nystatin 100,000 unit/gram topical TOPICAL 09/15/20 09/15/20 powder pen needle, diabetic 32 gauge x #50 ea 09/15/20 09/15/20 1/4 pen needle, diabetic 33 gauge x #100 ea 09/15/20 09/15/20 1 dicyclomine 20 mg tablet 20 mg PO TID 09/19/20 metoprolol succinate 25 mg 25 mg PO DAILY 10/07/20 tablet,extended release 24 hr Previous Rx's Medication Instructions Recorded ciprofloxacin HCl 500 mg PO Q12H 10 Days #20 tab 09/06/20 metronidazole [Flagyl] 500 mg PO Q8H 10 Days #30 tab 09/06/20 oxycodone 5 mg PO TID PRN #9 cap 09/20/20 blood sugar diagnostic 1 strip MISCELLANEOUS TID 30 Days 09/22/20 #100 ea guaifenesin 600 mg tablet, 600 mg PO BID #20 tab 09/23/20 extended release 12 hr ondansetron 4 mg disintegrating 4 mg PO Q6H PRN #30 tab 09/23/20 tablet hydrochlorothiazide 12.5 mg tablet 12.5 mg PO QAM #90 tab 09/28/20 dicyclomine 20 mg tablet 20 mg PO QID #120 tab 10/14/20 famotidine 20 mg tablet 20 mg PO BID #60 tab 10/16/20 loratadine 10 mg tablet 10 mg PO DAILY #30 tab 10/16/20 grab bars for toilet seat #1 ea 10/17/20 lorazepam 1 mg tablet 1 mg PO BID PRN 30 Days #60 tab 10/18/20 tizanidine 4 mg tablet 4 mg PO BEDTIME PRN #30 tab 10/18/20 metoprolol succinate 25 mg 25 mg PO DAILY #28 tab 11/02/20 tablet,extended release 24 hr gabapentin 600 mg tablet 600 mg PO TID #90 tab 11/03/20 tramadol 50 mg tablet 50 mg PO BID PRN 30 Days #60 tab 11/03/20 Allergies Allergy/AdvReac Type Severity Reaction Status Date / Time bacitracin Allergy Unknown Unknown Verified 09/23/20 09:00 esomeprazole [From NEXIUM] Allergy Unknown UNKNOWN Verified 09/15/20 08:40 NSAIDS (Non-Steroidal Allergy Unknown UNKNOWN Verified 09/15/20 08:40 Anti-Inflamma [NSAIDS (NON-STEROIDAL ANTI-INFLAMMA] omeprazole [From PRILOSEC] Allergy Unknown STOMACH Verified 09/15/20 08:40 UPSET Review of Systems Review of Systems: Pertinent positives and negatives as stated in HPI 10 point review of systems is otherwise negative. FOR[facility]LY [facility] Past Medical History Source: nursing notes reviewed Medical History Asthma Black tarry stools Chronic hepatitis C CKD (chronic kidney disease) stage 3, GFR 30-59 ml/min COPD (chronic obstructive pulmonary disease) Degenerative disc disease, lumbar Diabetes mellitus, type 2 Diabetic neuropathy GERD (gastroesophageal reflux disease) Hypertension Knee pain, bilateral Liver cirrhosis Myocardial infarct, old Obesity PTSD (post-traumatic stress disorder) Renal insufficiency Tobacco abuse Type 2 diabetes mellitus with hyperglycemia Surgical History History of arthroplasty of both knees History of cholecystectomy History of elbow surgery History of fracture of leg History of surgery on arm History of total hysterectomy S/P insertion of spinal cord stimulator Family History Family History Father Medical history unknown Mother Medical history unknown Social History Social History Alcohol intake: unknown Smoking Status: Current every day smoker Use of substances other than those prescribed or required for medical reasons: Unknown Advance Directives: No Advance Directives Information Provided: No Physical Exam Vital Signs: Vital Signs: Last Vital Signs Temp 98.6 F 11/27/20 00:01 Pulse 97 11/27/20 06:00 Resp 16 11/27/20 06:00 BP 134/71 11/27/20 06:00 Pulse Ox 99 11/27/20 06:00 Body Mass Index 47.2 VITAL SIGNS: Reviewed. GENERAL: Well developed, well nourished, in no acute distress. HEAD: Normocephalic/atraumatic, EYES: PERRLA, EOMI intact without pain, no nystagmus/pallor/icterus noted EARS: Ext canals without abnormality, TMs non-bulging and non-erythematous NOSE: Nares patent bilateral, abrasion to the bridge of the nose that is hemostatic and looks to be well healing OROPHARYNX: no oral lesions noted, posterior pharynx clear and non-erythematous without noted tonsillar enlargement/erythema/exudates NECK: Supple, no adenopathy LUNGS: Normal breath sounds. No adventitious sounds or accessory muscle use. SpO2<100> CARDIOVASCULAR: Regular rate and rhythm without noted murmurs, no JVD or lower extremity edema. ABDOMEN: Distended, non-tender with bowel sounds. No rigidity. No guarding. No palpable masses or hernias noted MUSCULOSKELETAL: No tenderness, deformities, or effusions noted on gross inspection. EXTREMITIES: No cyanosis, clubbing or edema; there is a noted eschar to the left knee without surrounding erythema or fluctuance and surrounding skin is not warm to touch; right upper extremity: There are scabs along the forearm and elbow consistent with patient's reports of having fallen. SKIN: Inspection of the skin reveals no rashes, ulcerations, jaundice, pallor, or petechiae. NEUROLOGIC: Alert and oriented x 4. Strength and sensation to light touch were grossly intact x 4. Course Course Course Narrative: This is a 60-year-old female with history and clinical presentation consistent with most likely musculoskeletal in nature of the left chest wall, however will rule out any underlying pulmonary or cardiac etiologies. On review of all lab, imaging studies there are no acute findings to suggest a contribution from pneumonia, there were no acute changes on EKG and although high sensitivity troponin was mildly elevated in the 20s the serial 2nd troponin was lateral. Her noted low magnesium was supplemented with 1g of magnesium sulfate. Transaminemia is noted to be primarily chronic. CT findings are as follows: mesenteritis, subcapsular nodularity of the liver, and a 4 mm right middle lobe pulmonary nodule. However, no findings to further explain patient's left lateral chest wall pain and conclusion is that this is spasm/musculoskeletal in nature. Patient was updated and informed of all results and findings and is now requesting this speak with somebody from the crisis team and wishes further assistance in help at home as she states she is unable to cook for herself and is having significant difficulty with the assistance that she currently receives. Care team consult, case management, and physical therapy evaluation have been placed. Patient chart from [facility] is in clipboard. Patient signed out to Dr Muniz. Reevaluation(s) Reevaluation #1: I discussed the incidental finding mesenteritis with Dr. Couch who states that given the fact that the patient is not having abdominal discomfort this is likely an incidental finding and does not require any acute intervention at this time. Time: 07:10 Medical Decision Making Lab Data Result diagrams: 11/27/20 03:00 11/27/20 03:00 Labs: Lab Results 11/27/20 11/27/20 11/27/20 Range/Units 02:58 03:00 03:00 WBC 6.1 (4.8-10.8) X10*3/uL RBC 4.25 (4.20-5.50) X10*6/uL Hgb 12.0 (12.0-16.0) g/dl Hct 36.7 L (37-47) % MCV 86.4 (80-98) fL MCH 28.2 (27.0-33.0) pg MCHC 32.7 (31.0-35.0) g/dl RDW 14.1 (11.0-16.0) % Plt Count 130 L (160-400) X10*3/uL MPV 10.3 (9.4-12.3) fL Immature Gran % (Auto) 0.3 (0.0-0.4) % Neut % (Auto) 65.0 (45-73) % Lymph % (Auto) 25.4 (20-40) % [place] % (Auto) 7.0 (2-11) % Eos % (Auto) 2.0 (0-4) % Baso % (Auto) 0.3 (0-2) % Lymph # (Auto) 1.6 (1.2-4.9) X10*3/uL [place] # (Auto) 0.4 (0.1-1.2) X10*3/uL Eos # (Auto) 0.1 (0.0-0.4) X10*3/uL Baso # (Auto) 0.0 (0.0-0.2) X10*3/uL Abs Immat Gran (auto) 0.02 (0.00-0.03) X10*3/uL Absolute Neuts (auto) 4.0 (2.0-8.3) X10*3/uL Absolute Nucleated RBC 0.000 (0.0-0.012) X10*3/uL Nucleated RBC % (auto) 0.0 (0.0-0.2) /100WBC Smear Tech's Comments VERIFIED Sodium 140 (135-145) mmol/L Potassium 4.4 (3.3-5.1) mmol/l Chloride 106 (96-108) mmol/L Carbon Dioxide 25 (22-29) mmol/L Anion Gap 13 (12-20) BUN 11 (9-16) mg/dL Creatinine 0.77 (0.5-1.4) mg/dL Estim Creat Clear Calc 90.8 Estimated GFR > 60 POC Glucose 156 H (60-115) mg/dL Random Glucose 157 H (60-115) mg/dL Calcium 9.4 (8.4-10.2) mg/dL Magnesium (1.6-2.6) mg/dL Total Bilirubin 0.4 (0.0-1.0) mg/dL AST 41 H (5-31) U/L ALT 46 H (0-31) U/L Alkaline Phosphatase 165 H D (39-117) U/L Ammonia (13-55) umol/L Troponin I High Sens (<3.5-17.0) ng/L Total Protein 7.5 (6.5-8.0) g/dL Albumin 3.6 (3.5-5.0) g/dL Lipase (8-78) U/L Ethyl Alcohol mg/dL 11/27/20 11/27/20 11/27/20 Range/Units 03:00 03:00 03:00 WBC (4.8-10.8) X10*3/uL RBC (4.20-5.50) X10*6/uL Hgb (12.0-16.0) g/dl Hct (37-47) % MCV (80-98) fL MCH (27.0-33.0) pg MCHC (31.0-35.0) g/dl RDW (11.0-16.0) % Plt Count (160-400) X10*3/uL MPV (9.4-12.3) fL Immature Gran % (Auto) (0.0-0.4) % Neut % (Auto) (45-73) % Lymph % (Auto) (20-40) % [place] % (Auto) (2-11) % Eos % (Auto) (0-4) % Baso % (Auto) (0-2) % Lymph # (Auto) (1.2-4.9) X10*3/uL [place] # (Auto) (0.1-1.2) X10*3/uL Eos # (Auto) (0.0-0.4) X10*3/uL Baso # (Auto) (0.0-0.2) X10*3/uL Abs Immat Gran (auto) (0.00-0.03) X10*3/uL Absolute Neuts (auto) (2.0-8.3) X10*3/uL Absolute Nucleated RBC (0.0-0.012) X10*3/uL Nucleated RBC % (auto) (0.0-0.2) /100WBC Smear Tech's Comments Sodium (135-145) mmol/L Potassium (3.3-5.1) mmol/l Chloride (96-108) mmol/L Carbon Dioxide (22-29) mmol/L Anion Gap (12-20) BUN (9-16) mg/dL Creatinine (0.5-1.4) mg/dL Estim Creat Clear Calc Estimated GFR POC Glucose (60-115) mg/dL Random Glucose (60-115) mg/dL Calcium (8.4-10.2) mg/dL Magnesium (1.6-2.6) mg/dL Total Bilirubin (0.0-1.0) mg/dL AST (5-31) U/L ALT (0-31) U/L Alkaline Phosphatase (39-117) U/L Ammonia 60 H (13-55) umol/L Troponin I High Sens 22.4 H (<3.5-17.0) ng/L Total Protein (6.5-8.0) g/dL Albumin (3.5-5.0) g/dL Lipase 27 (8-78) U/L Ethyl Alcohol mg/dL 11/27/20 11/27/20 11/27/20 Range/Units 03:00 03:00 06:06 WBC (4.8-10.8) X10*3/uL RBC (4.20-5.50) X10*6/uL Hgb (12.0-16.0) g/dl Hct (37-47) % MCV (80-98) fL MCH (27.0-33.0) pg MCHC (31.0-35.0) g/dl RDW (11.0-16.0) % Plt Count (160-400) X10*3/uL MPV (9.4-12.3) fL Immature Gran % (Auto) (0.0-0.4) % Neut % (Auto) (45-73) % Lymph % (Auto) (20-40) % [place] % (Auto) (2-11) % Eos % (Auto) (0-4) % Baso % (Auto) (0-2) % Lymph # (Auto) (1.2-4.9) X10*3/uL [place] # (Auto) (0.1-1.2) X10*3/uL Eos # (Auto) (0.0-0.4) X10*3/uL Baso # (Auto) (0.0-0.2) X10*3/uL Abs Immat Gran (auto) (0.00-0.03) X10*3/uL Absolute Neuts (auto) (2.0-8.3) X10*3/uL Absolute Nucleated RBC (0.0-0.012) X10*3/uL Nucleated RBC % (auto) (0.0-0.2) /100WBC Smear Tech's Comments Sodium (135-145) mmol/L Potassium (3.3-5.1) mmol/l Chloride (96-108) mmol/L Carbon Dioxide (22-29) mmol/L Anion Gap (12-20) BUN (9-16) mg/dL Creatinine (0.5-1.4) mg/dL Estim Creat Clear Calc Estimated GFR POC Glucose (60-115) mg/dL Random Glucose (60-115) mg/dL Calcium (8.4-10.2) mg/dL Magnesium 1.4 L* (1.6-2.6) mg/dL Total Bilirubin (0.0-1.0) mg/dL AST (5-31) U/L ALT (0-31) U/L Alkaline Phosphatase (39-117) U/L Ammonia (13-55) umol/L Troponin I High Sens 23.6 H (<3.5-17.0) ng/L Total Protein (6.5-8.0) g/dL Albumin (3.5-5.0) g/dL Lipase (8-78) U/L Ethyl Alcohol < 10 mg/dL ECG Data Attestation: I personally reviewed and interpreted this ECG as follows: Prior ECG tracings: available for review (07/13/2020 no acute changes in comparison) Interpretation: Sinus rhythm, HR-92, no evidence of acute ischemia, MO/QRS/QTC are within normal limits. Discharge Plan Discharge Prescriptions: No Action dicyclomine 20 mg tablet 20 mg PO TID RF: 0 blood sugar diagnostic [FreeStyle Lite Strips] Strip 1 strip miscellaneous TID 30 Days Qty: 100 RF: 12 ondansetron 4 mg tablet,disintegrating 4 mg PO Q6H PRN (Reason: nausea and vomiting) Qty: 30 RF: 0 guaifenesin [Mucinex] 600 mg tablet extended release 12hr 600 mg PO BID Qty: 20 RF: 0 hydrochlorothiazide 12.5 mg tablet 12.5 mg PO QAM Qty: 90 RF: 0 metoprolol succinate 25 mg tablet extended release 24 hr 25 mg PO DAILY RF: 0 dicyclomine 20 mg tablet 20 mg PO QID Qty: 120 RF: 5 famotidine 20 mg tablet 20 mg PO BID Qty: 60 RF: 4 loratadine 10 mg tablet 10 mg PO DAILY Qty: 30 RF: 1 (DME) grab bars for toilet seat See Rx Instructions .Route .MEDSUPPLY Qty: 1 RF: 0 tizanidine 4 mg tablet 4 mg PO BEDTIME PRN (Reason: muscle spasticity) Qty: 30 RF: 2 lorazepam 1 mg tablet 1 mg PO BID PRN (Reason: anxiety) 30 Days Qty: 60 RF: 1 metoprolol succinate 25 mg tablet extended release 24 hr 25 mg PO DAILY Qty: 28 RF: 3 tramadol 50 mg tablet 50 mg PO BID PRN (Reason: pain) 30 Days Qty: 60 RF: 1 gabapentin 600 mg tablet 600 mg PO TID Qty: 90 RF: 1 ciprofloxacin HCl 500 mg tablet 500 mg PO Q12H 10 Days Qty: 20 RF: 0 metronidazole [Flagyl] 500 mg tablet 500 mg PO Q8H 10 Days Qty: 30 RF: 0 oxycodone 5 mg capsule 5 mg PO TID PRN (Reason: pain) Qty: 9 RF: 0 (DME) Comfort EZ Pen [place] 33 gauge x 1/4 needle See Rx Instructions ea .ROUTE .MEDSUPPLY Qty: 100 RF: 0 nystatin 100,000 unit/gram powder topical RF: 0 lisinopril 20 mg tablet 20 mg PO DAILY RF: 0 fluticasone propion-salmeterol 250-50 mcg/dose blister with device inhalation RF: 0 (DME) FreeStyle Lite Strips Strip See Rx Instructions ea Not Applicable TID Qty: 10 RF: 0 (DME) pen needle, diabetic 32 gauge x 1/4 needle See Rx Instructions ea .ROUTE .MEDSUPPLY Qty: 50 RF: 0 Combivent Respimat 20-100 mcg/actuation mist 1 puff inhalation Q6H RF: 0 (DME) lancets 30 gauge misc See Rx Instructions ea .ROUTE TID Qty: 100 RF: 0 alcohol swabs Pads, Medicated 0 pad topical RF: 0 insulin glargine 100 unit/mL (3 mL) insulin pen 40 unit subcut .COMPLEX RF: 0 insulin aspart U-100 100 unit/mL (3 mL) insulin pen 5 unit subcut .COMPLEX RF: 0
[2020-11-27 03:08] LABS: Basophils Percent Auto 0.3 % (0-2); Imm Gran Abs Auto 0.02 X10*3/uL (0.00-0.03); Imm Gran Pct Auto 0.3 % (0.0-0.4); MANUAL DIFF FLAG SCAN; Mean Platelet Volume 10.3 fL (9.4-12.3); PLT CLUMP 1; Red Cell Distribution Width 14.1 % (11.0-16.0); SCAN SMEAR FLAG 1
[2020-11-27 03:08] LABS: Glucose, Whole Blood 156 mg/dL (60-115)
[2020-11-27 03:09] LABS: Eosinophils Absolute Auto 0.1 X10*3/uL (0.0-0.4); Hematocrit 36.7 % (37-47); Lymphocytes Absolute Auto 1.6 X10*3/uL (1.2-4.9); Lymphocytes Percent Auto 25.4 % (20-40); Mean Corpuscular HGB Conc 32.7 g/dl (31.0-35.0); Mean Corpuscular Hemoglobin 28.2 pg (27.0-33.0); Mean Corpuscular Volume 86.4 fL (80-98); Monocytes Absolute Auto 0.4 X10*3/uL (0.1-1.2); Platelet Count 130 X10*3/uL (160-400); Red Blood Count 4.25 X10*6/uL (4.20-5.50); White Blood Count 6.1 X10*3/uL (4.8-10.8)
[2020-11-27 03:18] LABS: Ammonia 60 umol/L (13-55)
[2020-11-27 03:26] LABS: SLIDE REVIEW VERIFIED
[2020-11-27 03:31] LABS: Ethanol < 10 mg/dL
[2020-11-27 03:35] LABS: Alanine Aminotransferase 46 U/L (0-31); Albumin Level 3.6 g/dL (3.5-5.0); Alkaline Phosphatase 165 U/L (39-117); Anion Gap 13 (12-20); Aspartate Amino Transferase 41 U/L (5-31); Bilirubin Total 0.4 mg/dL (0.0-1.0); Blood Urea Nitrogen 11 mg/dL (9-16); Calcium 9.4 mg/dL (8.4-10.2); Carbon Dioxide 25 mmol/L (22-29); Chloride 106 mmol/L (96-108); Creatinine Clr Calc Pharmacy 90.8; Estimated Glomerular Filt Rate > 60; Glucose Random 157 mg/dL (60-115); Lipase 27 U/L (8-78); Potassium 4.4 mmol/l (3.3-5.1); Sodium 140 mmol/L (135-145); Total Protein 7.5 g/dL (6.5-8.0)
[2020-11-27 03:36] LABS: Troponin-I High Sensitivity 22.4 ng/L (<3.5-17.0)
[2020-11-27 03:37] LABS: Magnesium 1.4 mg/dL (1.6-2.6)
[2020-11-27 04:00] VITALS: BP 123/73; PULSE 100; RESP 16; O2SAT 100
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
[2020-11-27] MEDS: Magnesium Sulfate/D5W 1 GM/100 ML PIGGYBACK IV (04:14)
--- NOTE | 2020-11-27 04:26 | CT_ITS ---
EXAMINATION: CT CHEST, ABDOMEN AND PELVIS WITH CONTRAST CLINICAL INFORMATION: Left-sided chest pain. Left upper quadrant abdominal pain. COMPARISON: 09/22/2020. 08/21/2019. TECHNIQUE: Contiguous axial thin section helical images of the chest, abdomen and pelvis were performed following the administration of 85 mL of intravenous Omnipaque 350. The data set was reformatted in the coronal and sagittal planes and reviewed on an independent workstation. DLP: 1319 mGy-cm. FINDINGS: The heart is of normal size. There is no pericardial effusion. There is neither mediastinal, hilar nor axillary lymphadenopathy. There is stable nonpathologically enlarged mediastinal lymph nodes. There are no chest wall masses. Review of lung windows demonstrates that there are neither pleural effusions nor pneumothoraces. There are no consolidations. Within the right middle lobe on image 274/512, there is a 4 mm nodule. The liver is of normal size and mildly decreased attenuation without focal lesions nor intrahepatic biliary ductal dilation. There is extensive subcapsular nodularity. The patient is status post cholecystectomy. Surgical clips are present. There is stable mild dilation to the common duct measuring approximately 14 mm. The pancreas and adrenal glands are unremarkable. The spleen is of normal contour and attenuation. It is enlarged measuring 16.3 cm in greatest dimension. Both kidneys are of normal size and attenuation without hydronephrosis or nephrolithiasis. Following the administration of IV contrast, prompt symmetric nephrograms are displayed. There is neither mesenteric nor retroperitoneal lymphadenopathy. There is nonspecific fat stranding within the mesentery within the right mid abdomen. There is trace adjacent free fluid. Normal unopacified loops of small and large bowel are identified. A normal appendix is identified. There is no pelvic free fluid. The urinary bladder is unremarkable. There is neither pelvic nor inguinal lymphadenopathy. Bone windows: Neither sclerotic nor lytic bone lesions are identified. CT/CT abdomen pelvis w con IMPRESSION: Faint mesenteric fat stranding within the right side of the mid abdomen with trace free fluid. The appearance is nonspecific, though consider mesenteritis. Subcapsular nodularity to the liver. Nonspecific, though consistent with a history of cirrhosis. No consolidations. 4 mm right middle lobe pulmonary nodule. Various management parameters for solitary pulmonary nodules are in the literature. According to the Fleischner Society, recommendations for pulmonary nodules are as follows: Nodule size < or = to 4 mm in LOW RISK PATIENTS: No follow up needed. Nodule size < or = to 4 mm in HIGH RISK PATIENTS: Follow up CT at 12 months; if unchanged, no further follow up. Nodule size > 4-6 mm in LOW RISK PATIENTS: Follow up CT at 12 months; if unchanged, no further follow up. Nodule size > 4-6 mm in HIGH RISK PATIENTS: Initial follow up CT at 6-12 months, then at 18-24 months if no change. Nodule size > 6-8 mm in LOW RISK PATIENTS: Initial follow up CT at 6-12 months, then at 18-24 months if no change. Nodule size > 6-8 mm in HIGH RISK PATIENTS: Initial follow up CT at 3-6 months, then 9-12 months and 24 months if no change. Nodule size > 8 mm in LOW RISK PATIENTS: Follow up CT at around 3, 9, and 24 months, dynamic contrast-enhanced CT, PET, and/or biopsy. Nodule size > 8 mm in HIGH RISK PATIENTS: Same as for low-risk patients. Automated exposure control (Care Dose) Adjustment of the mA and/or kv according to patient size (this includes techniques or standardized protocols for targeted exams where dose is matched to indication / reason for exam; i.e. extremities or head).
[2020-11-27] MEDS: iohexoL 350 MG/ML 100 ML INFUS..BTL 85 ML IV (05:12)
[2020-11-27 06:00] VITALS: BP 134/71; PULSE 97; RESP 16; O2SAT 99
[2020-11-27 06:35] LABS: Troponin-I High Sensitivity 23.6 ng/L (<3.5-17.0)
--- NOTE | 2020-11-27 06:56 | PC.NURSE ---
PT ASKING TO SPEAK W/COUNSELOR, DENIES SI/HI, BUT STATES SHE WANTS TO SPEAK WITH W/SOMEONE ABOUT HER FEELINGS. I WAS TAUGHT I SHOULD SPEAK ABOUT HOW I FEEL
--- NOTE | 2020-11-27 07:56 | PC.NURSE ---
PT IS PERSISTENTLY RINGING HER CALL ARITA. WE HAVE BEEN AT THE BEDSIDE SEVERAL TIMES ADDRESSING HER PAIN COMPLAINT SHE WAS OFFERED SEVERAL INTERVENTIONS AND REFUSES SHE ALSO STATES SHE DOESNOT WANT TO BE ADMITTED AND NEEDS A EQUIPMENT WORKER FOR HOME
--- NOTE | 2020-11-27 08:31 | MHC.CARE ---
CARE Team met with Pt secondary to consult placed for anxiety and depression . Pt declined any mental health concerns at this time. Pt reported a history of therapy wtih [facility] and battled her demons . Pt processed frustrations regarding her HIDE SPLITTER and insurance company with t/w. Case Management to follow up with Pt.
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
[2020-11-27 10:22] VITALS: RESP 16
[2020-11-27] MEDS: traMADoL HCL 50 MG TABLET PO (10:40)
--- NOTE | 2020-11-27 10:53 | PC.NURSE ---
PT WAS MEDICATED FOR PAIN WITH TRAMADOL PRESCRIBED AT HOME SHE WAS GIVEN A SANDWICH AND GINGERALE SHE IS ASKING TO HOME. SHE DOES NOT WANT TO BOARD IN THE ED SUGGESTED BY CM. THIS REQUEST WAS PRESENTED TO THE PHYSICIAN
--- NOTE | 2020-11-27 12:27 | PC.NURSE ---
ACTION AT BEDSIDE FOR PT TRANSFER HOME.
== END 2020-11-27 12:29 | disposition home or self-care (01) ==
PROVIDERS: Emergency Provider Student in an Organized Health Care Education/Training Program; PCP Internal Medicine
DX: R07.89 Other chest pain (principal); R06.02 Shortness of breath; M54.6 Pain in thoracic spine; R10.9 Unspecified abdominal pain; Z79.899 Other long term (current) drug therapy
CPT/HCPCS: 36415; 71260; 74177; 80053; 80320; 82140; 82947; 83690; 83735; 84484; 85025; 93005; 96365; 99284; J3475; Q9967

== ENCOUNTER 2021-02-08 21:43 | Emergency (ER) | payer OTHER, SELFPAY ==
[2021-02-08 21:54] VITALS: BP 153/76; PULSE 99; RESP 18; TEMP 36.7; O2SAT 99; BMI 41.4
[2021-02-08 22:21] VITALS: BP 150/72; PULSE 98; RESP 21; TEMP 36.9; O2SAT 98
[2021-02-08 22:31] LABS: Glucose, Whole Blood 462 mg/dL (60-115)
[2021-02-08 23:58] LABS: MANUAL DIFF FLAG NO
[2021-02-09] VITALS: RESP 20
[2021-02-09] LABS: Basophils Percent Auto 0.4 % (0-2); Eosinophils Percent Auto 0.8 % (0-4); Hematocrit 35.3 % (37-47); Hemoglobin 11.6 g/dl (12.0-16.0); Imm Gran Abs Auto 0.02 X10*3/uL (0.00-0.03); Imm Gran Pct Auto 0.4 % (0.0-0.4); Lymphocytes Percent Auto 20.3 % (20-40); Mean Corpuscular HGB Conc 32.9 g/dl (31.0-35.0); Mean Corpuscular Volume 88.3 fL (80-98); Mean Platelet Volume 10.7 fL (9.4-12.3); Monocytes Absolute Auto 0.3 X10*3/uL (0.1-1.2); Monocytes Percent Auto 6.6 % (2-11); Neutrophils Absolute Auto 3.7 X10*3/uL (2.0-8.3); Neutrophils Percent Auto 71.5 % (45-73); Platelet Count 93 X10*3/uL (160-400); Red Cell Distribution Width 15.1 % (11.0-16.0); White Blood Count 5.1 X10*3/uL (4.8-10.8)
--- NOTE | 2021-02-09 | PC.NURSE ---
per patient she does not have allergy to motrin, no anaphylaxis or hives. pt reports concerns about the effect on liver/kidney. Pt amendable to toradol at this time.
[2021-02-09] MEDS: Lactated Ringers 1,000 ML 999 ML IV (00:01)
[2021-02-09 00:20] LABS: COVID-19 Test Negative (Negative); IDNOW Serial# 9DD0AD1C
[2021-02-09 00:22] LABS: Ammonia 49 umol/L (13-55)
[2021-02-09 00:24] LABS: Acetone, serum QL Negative (Negative)
--- NOTE | 2021-02-09 00:31 | PC.NURSE ---
Pt is incredibly verbally abusive to this tag writer. Pt reported to this tag writer that she was discharged from [facility] with no help and can't take her wound pain. There are well healing pressure ulcers located on buttock and coccyx. Pt has reddened area on toes on left foot along with moderate breakdown located on sole of left foot. IV established. 18g left forearm vss stable.
[2021-02-09 00:32] LABS: Glucose Urine UA >=1000 MG/DL (NEG); Leukocyte Esterase Urine NEG (NEG); Nitrite Urine NEG (NEG); PH 6.5 (5.0-8.0); Urine Blood TRACE (NEG); Urine Ketones NEG (NEG); Urine Protein NEG (NEG-TRACE)
[2021-02-09 00:35] LABS: Appearance Urine CLEAR; Color Urine YELLOW
[2021-02-09 00:36] LABS: Alanine Aminotransferase 76 U/L (0-31); Albumin Level 3.6 g/dL (3.5-5.0); Alkaline Phosphatase 278 U/L (39-117); Anion Gap 12 (12-20); Aspartate Amino Transferase 47 U/L (5-31); B Type Natriuretic Peptide 36 pg/mL (<100); Bilirubin Total 0.3 mg/dL (0.0-1.0); Blood Urea Nitrogen 24 mg/dL (9-16); Calcium 9.2 mg/dL (8.4-10.2); Carbon Dioxide 27 mmol/L (22-29); Chloride 99 mmol/L (96-108); Creatinine Clr Calc Pharmacy 50.9; Estimated Glomerular Filt Rate 43; Glucose Random 559 mg/dL (60-115); Potassium 4.4 mmol/L (3.3-5.1); Sodium 134 mmol/L (135-145); Total Protein 7.3 g/dL (6.5-8.0)
[2021-02-09 00:39] LABS: Bacteria Urine 2+ /LPF; Squamous Epithelial Cell Urine 2+ /LPF; UACC CULT YES
--- NOTE | 2021-02-09 00:49 | ED.GENADULT ---
HPI - General Adult General Source: patient Mode of arrival: EMS Limitations: physical limitation (Wheelchair) History of Present Illness HPI narrative: Patient is a 60-year-old female with a past medical history of schizoaffective disorder, PTSD multiple psychiatric admissions at [facility] for STI, hypertension, type 2 diabetes, chronic hep C with cirrhosis, COPD not on home oxygen who presents to the ED after being discharged by [facility] earlier today. On 01/28, the patient presented to [facility] with AMS, was admitted after being found at home and on the floor for 5 days. She was treated for UTI, had multiple wounds on her buttocks for which Wound Care attended to. Patient presents tonight complaining of pain you know where , stating that she has an ED in and she does not feel good and she needs help and no one at [facility] wanted to help her and her blood sugar is high. She denies nausea vomiting diarrhea fevers stomach pain chest pain or shortness of breath Related Data Home Medications Medication Instructions Recorded Confirmed alcohol swabs 0 pad TOPICAL 09/15/20 09/15/20 blood sugar diagnostic #10 ea 09/15/20 09/15/20 lancets 30 gauge #100 ea 09/15/20 09/15/20 nystatin 100,000 unit/gram topical TOPICAL 09/15/20 09/15/20 powder pen needle, diabetic 32 gauge x #50 ea 09/15/20 09/15/2012/05 pen needle, diabetic 33 gauge x #100 ea 09/15/20 09/15/2012/05 metoprolol succinate 25 mg 25 mg PO DAILY 10/07/20 tablet,extended release 24 hr Previous Rx's Medication Instructions Recorded oxycodone 5 mg PO TID PRN #9 cap 09/20/20 blood sugar diagnostic 1 strip MISCELLANEOUS TID 30 Days 09/22/20 #100 ea guaifenesin 600 mg tablet, 600 mg PO BID #20 tab 09/23/20 extended release 12 hr dicyclomine 20 mg tablet 20 mg PO QID #120 tab 10/14/20 grab bars for toilet seat #1 ea 10/17/20 gabapentin 600 mg tablet 600 mg PO TID #90 tab 11/30/20 ipratropium 20 mcg-albuterol 100 1 puff INHALATION QID #4 g 12/12/20 mcg/actuation mist for inhalation insulin aspart U-100 100 unit/mL 5 unit SUBCUT TID #15 ml 12/13/20 (3 mL) subcutaneous pen famotidine 20 mg tablet 20 mg PO BID #60 tab 12/15/20 fluticasone 250 mcg-salmeterol 50 1 inh INHALATION BID 30 Days #60 ea 12/15/20 mcg/dose blistr powdr for inhalation lisinopril 20 mg tablet 20 mg PO DAILY #90 tab 12/15/20 lorazepam 1 mg tablet 1 mg PO BID PRN 30 Days #60 tab 12/15/20 metoprolol succinate 25 mg 25 mg PO DAILY #28 tab 12/15/20 tablet,extended release 24 hr ondansetron 4 mg disintegrating 4 mg PO Q6H PRN #30 tab 12/15/20 tablet tizanidine 4 mg tablet 4 mg PO BEDTIME PRN #30 tab 01/04/21 dicyclomine 20 mg tablet 20 mg PO TID #90 tab 01/09/21 hydrochlorothiazide 12.5 mg tablet 12.5 mg PO QAM #90 tab 01/09/21 loratadine 10 mg tablet 10 mg PO DAILY #30 tab 01/09/21 sumatriptan succinate 50 mg tablet 50 mg PO .QD PRN #10 tab 01/18/21 tramadol 50 mg tablet 50 mg PO BID 90 Days #180 tab 01/19/21 insulin glargine 100 unit/mL (3 See Rx Instructions SUBCUT 02/08/21 mL) subcutaneous pen .COMPLEX #15 ml cephalexin 500 mg PO Q12H #10 cap 02/09/21 Allergies Allergy/AdvReac Type Severity Reaction Status Date / Time bacitracin Allergy Unknown Unknown Verified 01/02/21 14:48 esomeprazole [From NEXIUM] Allergy Unknown UNKNOWN Verified 01/02/21 14:48 NSAIDS (Non-Steroidal Allergy Unknown UNKNOWN Verified 01/02/21 14:48 Anti-Inflamma [NSAIDS (NON-STEROIDAL ANTI-INFLAMMA] omeprazole [From PRILOSEC] Allergy Unknown STOMACH Verified 01/02/21 14:48 UPSET Review of Systems Review of Systems: Yes all other systems are reviewed and are negative PMFSH Past Medical History Medical History Asthma Chronic hepatitis C CKD (chronic kidney disease) stage 3, GFR 30-59 ml/min COPD (chronic obstructive pulmonary disease) Degenerative disc disease, lumbar Diabetic neuropathy GERD (gastroesophageal reflux disease) Hypercholesterolemia Hypertension Irritable bowel syndrome Knee pain, bilateral Liver cirrhosis Myocardial infarct, old Obesity PTSD (post-traumatic stress disorder) Renal insufficiency Tobacco abuse Type 2 diabetes mellitus with hyperglycemia Surgical History History of arthroplasty of both knees History of cholecystectomy History of elbow surgery History of fracture of leg History of surgery on arm History of total hysterectomy S/P insertion of spinal cord stimulator Family History Family History Father Medical history unknown Mother Medical history unknown Social History Social History Alcohol intake: current Smoking Status: Current every day smoker Use of substances other than those prescribed or required for medical reasons: Refusing to respond Advance Directives: No Advance Directives Information Provided: Yes Physical Exam Vital Signs: Vital Signs: Last Vital Signs Temp 98.4 F 02/08/21 22: Pulse 98 02/08/21 22:21 Resp 20 02/09/21 00:00 BP 150/72 H 02/08/21 22: Pulse Ox 98 02/08/21 22:21 Body Mass Index 41.4 Const: General: cooperative, healthy appearing, comfortable, no acute distress and well developed Orientation/consciousness: patient oriented x3 Limitations: no limitations HENMT: Head: Yes normal to inspection Eyes: General: appearance normal, both eyes and all related structures Neck: Neck: Yes normal visual inspection and Yes full ROM Resp: Effort & Inspection: normal respiratory effort and able to speak in complete sentences Auscultation: clear to auscultation bilaterally Cardio: Rate: regular rate Rhythm: regular rhythm Heart sounds: normal S1 and S2 GI: Inspection: Yes normal to inspection Palpation (GI): Soft to palpation and nontender Skin: Other: Patient has healing wounds on her buttocks and right kneew cap, that look well cared for, have cream and bandages on them, no signs of infection noted, bandages are CDI. Neuro: General: patient oriented x3 Extrem: General: Yes normal to inspection Psych: Affect: Hostile affect present Attitude: Belligerent attititude/behavior present Insight: Fair insight present (Psych) Judgement: Fair judgement present (Psych) Course Course Course Narrative: Patient is a 60-year-old female with a past medical history of schizoaffective disorder, PTSD multiple psychiatric admissions at [facility] for STI, hypertension, type 2 diabetes, chronic hep C with cirrhosis, COPD not on home oxygen who presents to the ED after being discharged by [facility] earlier today. On 01/28, the patient presented to [facility] with AMS, was admitted after being found at home and on the floor for 5 days. She was treated for UTI, had multiple wounds on her buttocks for which Wound Care attended to. Patient presents tonight saying she is in pain, she does not feel well and she has not eaten in a few weeks. Thinks noone at [facility] helped her. Will get labs, give IV fluids and give pain medication based on lab values. Labs WNL or at patient's baseline, UA appears to be slightly positive so I will treat her for a urinary tract infection. Patient refusing Toradol despite a BUN and creatinine that are WNL. She is yelling at the nurse and myself, being belligerent and disrespectful and threatening to Callie us. I tried to explain that her kidneys can handle this dose of Toradol but she is refusing the medication. I told her she had that right and we will not give the medication. I will discharge patient with a prescription for Keflex for her UTI. We will call an ambulance for the patient for transportation home. Patient refusing 1st dose of Keflex. Medical Decision Making Lab Data Result diagrams: 02/08/21 23:50 02/08/21 23:50 Labs: Lab Results 02/08/21 02/08/21 02/08/21 Range/Units 21:56 23:50 23:50 WBC 5.1 (4.8-10.8) X10*3/uL RBC 4.00 L (4.20-5.50) X10*6/uL Hgb 11.6 L (12.0-16.0) g/dl Hct 35.3 L (37-47) % MCV 88.3 (80-98) fL MCH 29.0 (27.0-33.0) pg MCHC 32.9 (31.0-35.0) g/dl RDW 15.1 (11.0-16.0) % Plt Count 93 L D (160-400) X10*3/uL MPV 10.7 (9.4-12.3) fL Immature Gran % (Auto) 0.4 (0.0-0.4) % Neut % (Auto) 71.5 (45-73) % Lymph % (Auto) 20.3 (20-40) % [place] % (Auto) 6.6 (2-11) % Eos % (Auto) 0.8 (0-4) % Baso % (Auto) 0.4 (0-2) % Lymph # (Auto) 1.0 L (1.2-4.9) X10*3/uL [place] # (Auto) 0.3 (0.1-1.2) X10*3/uL Eos # (Auto) 0.0 (0.0-0.4) X10*3/uL Baso # (Auto) 0.0 (0.0-0.2) X10*3/uL Abs Immat Gran (auto) 0.02 (0.00-0.03) X10*3/uL Absolute Neuts (auto) 3.7 (2.0-8.3) X10*3/uL Absolute Nucleated RBC 0.000 (0.0-0.012) X10*3/uL Nucleated RBC % (auto) 0.0 (0.0-0.2) /100WBC Sodium 134 L (135-145) mmol/L Potassium 4.4 (3.3-5.1) mmol/L Chloride 99 (96-108) mmol/L Carbon Dioxide 27 (22-29) mmol/L Anion Gap 12 (12-20) BUN 24 H D (9-16) mg/dL Creatinine 1.27 (0.5-1.4) mg/dL Estim Creat Clear Calc 50.9 Estimated GFR 43 POC Glucose 462 H* (60-115) mg/dL Random Glucose 559 H* (60-115) mg/dL Calcium 9.2 (8.4-10.2) mg/dL Total Bilirubin 0.3 (0.0-1.0) mg/dL AST 47 H (5-31) U/L ALT 76 H (0-31) U/L Alkaline Phosphatase 278 H D (39-117) U/L Ammonia (13-55) umol/L B-Natriuretic Peptide (<100) pg/mL Total Protein 7.3 (6.5-8.0) g/dL Albumin 3.6 (3.5-5.0) g/dL Urine Color Urine Appearance Urine pH (5.0-8.0) Ur Specific [place] (1.005-1.025) Urine Protein (NEG-TRACE) MG/DL Urine Glucose (UA) (NEG) MG/DL Urine Ketones (NEG) MG/DL Urine Blood (NEG) Urine Nitrite (NEG) Ur Leukocyte Esterase (NEG) Urine RBC (0) /HPF Urine WBC (0-4) /HPF Ur Squamous Epith Cells /LPF Urine Bacteria /LPF Acetone, Qual Negative (Negative) COVID-19 (ZAHEER) (Negative) COVID-19 Clin Com 02/08/21 02/08/21 02/08/21 Range/Units 23:50 23:50 23:50 WBC (4.8-10.8) X10*3/uL RBC (4.20-5.50) X10*6/uL Hgb (12.0-16.0) g/dl Hct (37-47) % MCV (80-98) fL MCH (27.0-33.0) pg MCHC (31.0-35.0) g/dl RDW (11.0-16.0) % Plt Count (160-400) X10*3/uL MPV (9.4-12.3) fL Immature Gran % (Auto) (0.0-0.4) % Neut % (Auto) (45-73) % Lymph % (Auto) (20-40) % [place] % (Auto) (2-11) % Eos % (Auto) (0-4) % Baso % (Auto) (0-2) % Lymph # (Auto) (1.2-4.9) X10*3/uL [place] # (Auto) (0.1-1.2) X10*3/uL Eos # (Auto) (0.0-0.4) X10*3/uL Baso # (Auto) (0.0-0.2) X10*3/uL Abs Immat Gran (auto) (0.00-0.03) X10*3/uL Absolute Neuts (auto) (2.0-8.3) X10*3/uL Absolute Nucleated RBC (0.0-0.012) X10*3/uL Nucleated RBC % (auto) (0.0-0.2) /100WBC Sodium (135-145) mmol/L Potassium (3.3-5.1) mmol/L Chloride (96-108) mmol/L Carbon Dioxide (22-29) mmol/L Anion Gap (12-20) BUN (9-16) mg/dL Creatinine (0.5-1.4) mg/dL Estim Creat Clear Calc Estimated GFR POC Glucose (60-115) mg/dL Random Glucose (60-115) mg/dL Calcium (8.4-10.2) mg/dL Total Bilirubin (0.0-1.0) mg/dL AST (5-31) U/L ALT (0-31) U/L Alkaline Phosphatase (39-117) U/L Ammonia 49 (13-55) umol/L B-Natriuretic Peptide 36 (<100) pg/mL Total Protein (6.5-8.0) g/dL Albumin (3.5-5.0) g/dL Urine Color YELLOW Urine Appearance CLEAR Urine pH 6.5 (5.0-8.0) Ur Specific [place] 1.010 (1.005-1.025) Urine Protein NEG (NEG-TRACE) MG/DL Urine Glucose (UA) >=1000 H (NEG) MG/DL Urine Ketones NEG (NEG) MG/DL Urine Blood TRACE (NEG) Urine Nitrite NEG (NEG) Ur Leukocyte Esterase NEG (NEG) Urine RBC 1-4 (0) /HPF Urine WBC 5-9 H (0-4) /HPF Ur Squamous Epith Cells 2+ /LPF Urine Bacteria 2+ /LPF Acetone, Qual (Negative) COVID-19 (ZAHEER) (Negative) COVID-19 Clin Com 02/08/21 02/09/21 Range/Units 23:53 02:25 WBC (4.8-10.8) X10*3/uL RBC (4.20-5.50) X10*6/uL Hgb (12.0-16.0) g/dl Hct (37-47) % MCV (80-98) fL MCH (27.0-33.0) pg MCHC (31.0-35.0) g/dl RDW (11.0-16.0) % Plt Count (160-400) X10*3/uL MPV (9.4-12.3) fL Immature Gran % (Auto) (0.0-0.4) % Neut % (Auto) (45-73) % Lymph % (Auto) (20-40) % [place] % (Auto) (2-11) % Eos % (Auto) (0-4) % Baso % (Auto) (0-2) % Lymph # (Auto) (1.2-4.9) X10*3/uL [place] # (Auto) (0.1-1.2) X10*3/uL Eos # (Auto) (0.0-0.4) X10*3/uL Baso # (Auto) (0.0-0.2) X10*3/uL Abs Immat Gran (auto) (0.00-0.03) X10*3/uL Absolute Neuts (auto) (2.0-8.3) X10*3/uL Absolute Nucleated RBC (0.0-0.012) X10*3/uL Nucleated RBC % (auto) (0.0-0.2) /100WBC Sodium (135-145) mmol/L Potassium (3.3-5.1) mmol/L Chloride (96-108) mmol/L Carbon Dioxide (22-29) mmol/L Anion Gap (12-20) BUN (9-16) mg/dL Creatinine (0.5-1.4) mg/dL Estim Creat Clear Calc Estimated GFR POC Glucose 412 H* (60-115) mg/dL Random Glucose (60-115) mg/dL Calcium (8.4-10.2) mg/dL Total Bilirubin (0.0-1.0) mg/dL AST (5-31) U/L ALT (0-31) U/L Alkaline Phosphatase (39-117) U/L Ammonia (13-55) umol/L B-Natriuretic Peptide (<100) pg/mL Total Protein (6.5-8.0) g/dL Albumin (3.5-5.0) g/dL Urine Color Urine Appearance Urine pH (5.0-8.0) Ur Specific [place] (1.005-1.025) Urine Protein (NEG-TRACE) MG/DL Urine Glucose (UA) (NEG) MG/DL Urine Ketones (NEG) MG/DL Urine Blood (NEG) Urine Nitrite (NEG) Ur Leukocyte Esterase (NEG) Urine RBC (0) /HPF Urine WBC (0-4) /HPF Ur Squamous Epith Cells /LPF Urine Bacteria /LPF Acetone, Qual (Negative) COVID-19 ([facility]HEER) Negative (Negative) COVID-19 Clin Com See Note Discharge Plan Discharge Clinical Impression: Hyperglycemia UTI (urinary tract infection) Qualifiers: Urinary tract infection type: acute cystitis Hematuria presence: without hematuria Qualified Code(s): N30.00 - Acute cystitis without hematuria Patient Disposition: Home, Self-Care Instructions: Urinary Tract Infection in Older Adults (ED) Prescriptions: New cephalexin 500 mg capsule 500 mg PO Q12H Qty: 10 RF: 0 No Action blood sugar diagnostic [FreeStyle Lite Strips] Strip 1 strip miscellaneous TID 30 Days Qty: 100 RF: 12 guaifenesin [Mucinex] 600 mg tablet extended release 12hr 600 mg PO BID Qty: 20 RF: 0 metoprolol succinate 25 mg tablet extended release 24 hr 25 mg PO DAILY RF: 0 dicyclomine 20 mg tablet 20 mg PO QID Qty: 120 RF: 5 (DME) grab bars for toilet seat See Rx Instructions .Route .MEDSUPPLY Qty: 1 RF: 0 ipratropium-albuterol [Combivent Respimat] 20-100 mcg/actuation mist 1 puff inhalation QID Qty: 4 RF: 0 insulin aspart U-100 [Novolog Flexpen U-100 Insulin] 100 unit/mL (3 mL) insulin pen 5 unit subcut TID Qty: 15 RF: 2 famotidine 20 mg tablet 20 mg PO BID Qty: 60 RF: 4 lisinopril 20 mg tablet 20 mg PO DAILY Qty: 90 RF: 1 lorazepam 1 mg tablet 1 mg PO BID PRN (Reason: anxiety) 30 Days Qty: 60 RF: 1 metoprolol succinate 25 mg tablet extended release 24 hr 25 mg PO DAILY Qty: 28 RF: 3 ondansetron 4 mg tablet,disintegrating 4 mg PO Q6H PRN (Reason: nausea and vomiting) Qty: 30 RF: 0 fluticasone propion-salmeterol 250-50 mcg/dose blister with device 1 inh inhalation BID 30 Days Qty: 60 RF: 3 tizanidine 4 mg tablet 4 mg PO BEDTIME PRN (Reason: for muscle spasm) Qty: 30 RF: 2 loratadine 10 mg tablet 10 mg PO DAILY Qty: 30 RF: 11 dicyclomine 20 mg tablet 20 mg PO TID Qty: 90 RF: 5 hydrochlorothiazide 12.5 mg tablet 12.5 mg PO QAM Qty: 90 RF: 3 sumatriptan succinate [Imitrex] 50 mg tablet 50 mg PO .QD PRN (Reason: migraine headache) Qty: 10 RF: 4 tramadol 50 mg tablet 50 mg PO BID 90 Days Qty: 180 RF: 1 insulin glargine [Lantus Solostar U-100 Insulin] 100 unit/mL (3 mL) insulin pen See Rx Instructions subcut .COMPLEX Qty: 15 RF: 4 oxycodone 5 mg capsule 5 mg PO TID PRN (Reason: pain) Qty: 9 RF: 0 (DME) Comfort EZ Pen [place] 33 gauge x 1/4 needle See Rx Instructions ea .ROUTE .MEDSUPPLY Qty: 100 RF: 0 nystatin 100,000 unit/gram powder topical RF: 0 (DME) FreeStyle Lite Strips Strip See Rx Instructions ea Not Applicable TID Qty: 10 RF: 0 (DME) pen needle, diabetic 32 gauge x 1/4 needle See Rx Instructions ea .ROUTE .MEDSUPPLY Qty: 50 RF: 0 (DME) lancets 30 gauge misc See Rx Instructions ea .ROUTE TID Qty: 100 RF: 0 alcohol swabs Pads, Medicated 0 pad topical RF: 0 gabapentin 600 mg tablet 600 mg PO TID Qty: 90 RF: 1 Interventions: ED Discharge Assessment Last Done: 02/09/21 02:43 Discharge Date/Time: 02/09/21 02:48
--- NOTE | 2021-02-09 01:26 | PC.NURSE ---
pt refusing toradol. provider to bedside.
--- NOTE | 2021-02-09 01:29 | PC.NURSE ---
Provider at bedside: Pt adamently refusing medication. Pt refusing education provided by staff rns and Eva Cabezas. pt continues to be verbally abusive to staff. this is bullshit. I need stronger stuff than toradol, but it's a lot anyway. If my kidney's shut down it's your fault. Pt educated that kidney fuction is appropriate and will be able to tolerate medication. i'm going to aureliano you when my kidneys shut down. you guys don't understand me. you know where my pain is coming from, you bitch. I'm going to [facility] you Pt continues to directly threaten staff. Provider is in agreement to hold medication.
--- NOTE | 2021-02-09 01:38 | PC.NURSE ---
patient reporting i am not supposed to have that asked if patient does not want medication. of course I want that. i need medication for pain. but if this medication hurts my kidneys or liver, I will a[facility] you and this hospital directly threatening rn about medication administration. asking patient if she wants to refusing medication, provider at bedside. patient yelling at her and also threatening her. patient not wanting medication at this time, plan for discharge
--- NOTE | 2021-02-09 01:40 | PC.NURSE ---
Pt refused the tech to remove the IV. This rn in to bedside. I explained to the patient that the abusive behavior would no longer be tolerated. Due to repeated refusal of pain management due to allergy and non narcotic in nature, no further medication will be offered. the IV will be removed, the patient will be discharged home. Due to threatening behavior, concerns for staff safety, No repeated point of care. Per patient you are just pissy that i wouldn't take med. I want it now. adamant that she never threaten this RN and other staff. i'm going to [facility] you. I want your names, this is bullshit. i'm not waiting 20 hrs for help. Pt stated she needs ambulance home. THIS RN THREATENED ME, she told me she wouldn't give me anything else. Provider to bedside. Patient stated you are all going to lose your jobs. You think this is funny? Malpractice is one of the greates killers. I wouldn't be a big shot if I was you. Provider to beside to ask if patient would be amendable to antibiotic. Pt refuses Tyenol/NSAID.Pt refusing PO antibiotic, after education. YOU DID THINGS AGAINST THE LAW. THIS IS MALPRACTICE. YOU'RE TELLING ME i DON'T LOOK LIKE I'M IN PAIN, YOU FUCKING IDIOT. after multiple education attempts, patient continues to be belligerent to staff. other places give me narcotics for less.
--- NOTE | 2021-02-09 02:22 | PC.NURSE ---
pt reports all Rx are delivered to care home where she resides. charge operator to attempt recheck of bgl.
--- NOTE | 2021-02-09 02:24 | PC.NURSE ---
pt amendable that charge master analyst to take bgl. provider aware. BGL 412 at this time. Pt reports normally taking 45 units lantus then she is on sliding scale of novalog.
--- NOTE | 2021-02-09 02:26 | PC.NURSE ---
pt continues to tolerate PO intake. No n/v reported or distress observed.
[2021-02-09 02:28] LABS: Glucose, Whole Blood 412 mg/dL (60-115)
[2021-02-09] MEDS: Insulin Lispro 100 UNIT/ML 3 ML VIAL 10 UNIT SUBCUT (02:36)
[2021-02-09] MEDS: Insulin Glargine,Hum.rec.anlog 100 UNIT/ML 10 ML VIAL 40 UNIT SUBCUT (02:37)
--- NOTE | 2021-02-09 02:39 | PC.NURSE ---
Pt refused to have this rn to discuss discharge. Per patient i don't want you. I want her Pt gestured to charge operator. why do people lie? She's a liar. Only you care. Don't tell her that. charge operator to discharge patient. Ambulance to bedside.
== END 2021-02-09 02:48 | disposition home or self-care (01) ==
PROVIDERS: Physician Assistant; Emergency Provider Emergency Medicine
DX: N30.00 Acute cystitis without hematuria (principal); E11.65 Type 2 diabetes mellitus with hyperglycemia; J44.9 Chronic obstructive pulmonary disease, unspecified; G89.29 Other chronic pain; F17.200 Nicotine dependence, unspecified, uncomplicated; Z20.822 Contact with and (suspected) exposure to COVID-19; Z99.81 Dependence on supplemental oxygen; Z79.899 Other long term (current) drug therapy; Z71.6 Tobacco abuse counseling
CPT/HCPCS: 36415; 80053; 81001; 82009; 82140; 82947; 83880; 85025; 87086; 87635; 96360; 96365; 96375; 99284; 99285